=== PATIENT | female | born 1945 | race Caucasian/White ===

== ENCOUNTER 2018-04-11 12:57 | Inpatient (IN) | payer BC, MEDICARE ==
[~2018-04-11] VITALS: Ht 157.5 cm; Wt 73.0 kg
[~2018-04-11 12:57] MED LIST: ACETAMINOPHEN500 MG PO; ASPIR 8181 MG PO; CATAPRES0.1 MG PO; D-20002000 UNIT PO; DALIRESP500 MCG PO; DIGOXIN125 MCG PO; FERROUS SULFAT325 MG PO; FOLIC ACID0.8 MG; FOLIC ACID1 MG PO; IMODIUM A-D2 MG PO; IPRATROPIU0.2 MG/1 M INH; LASIX20 MG PO; LEVALBUTER0.63 MG/3 INH; LEVAQUIN250 MG PO; LIPITOR10 MG; LIPITOR10 MG PO; LISINOPRIL20 MG; MAGNESIUM OXID400 MG PO; METOPROLOL SUCC50 MG; METOPROLOL SUCC50 MG PO; METOPROLOL TAR100 MG PO; NEXIUM40 MG; NEXIUM40 MG PO; NIACIN500 M1; OMEPRAZOLE40 MG PO; POTASSIUM CHLO10 MEQ PO; PREDNISONE5 MG PO; PREPARATION H1 EACH RC; PRINIVIL20 MG PO; PROMETHAZINE HC25 M1 PO; REGLAN5 MG PO; SIMVASTATIN10 MG PO; SPIRONOLACTONE25 MG PO; SUCRALFATE1 GM PO; THIAMINE HCL50 MG PO; ZOFRAN8 MG PO
--- NOTE | 2018-04-11 12:58 | NUR ---
1258 ADENOSINE 6MG 1300 ADENISINE 6MG 1305 ADENOSINE 12MG 1314 SYNC CARDIOVERSION 100J 1314 PATIENT CONVERTED TO SINUS TACH 120'S
[2018-04-11] MEDS ORDERED: ADENOSINE 6MG/2ML 3 ML ONE (13:04)
[2018-04-11] MEDS ORDERED: MIDAZOLAM HCL 2 MG/2 ML VIAL IV ONE (13:10)
[2018-04-11] MEDS ORDERED: MIDAZOLAM HCL 2 MG/2 ML VIAL ONE (13:11)
[2018-04-11 13:15] LABS: BASOPHILS % 0.2 % (0.0-1.0); EOSINOPHILS % 0.1 % (0.0-6.0); HEMATOCRIT 49.7 % (34.2-44.1); HEMOGLOBIN 16.1 g/dL (12.0-16.0); LYMPHOCYTES # (AUTO) 0.3 (1.0-3.2); LYMPHOCYTES % 2.2 % (18.0-39.1); MEAN CORPUSCULAR HEMOGLOBIN 31.6 pg (28-32); MEAN CORPUSCULAR HGB CONC 32.4 g/dL (31-35); MEAN CORPUSCULAR VOLUME 97.5 fL (81-99); MONOCYTES # (AUTO) 0.5 (0.2-0.8); MONOCYTES % 3.9 % (4.4-11.3); NEUTROPHILS # (AUTO) 12.8 (2.1-6.9); PLATELET COUNT 290 x10e3/uL (140-360); RED CELL DISTRIBUTION WIDTH 14.3 % (11.7-14.4)
[2018-04-11] MEDS ORDERED: ASPIRIN 81 MG CHEW TAB PO ONE ×2 (13:15→16:00)
[2018-04-11] MEDS ORDERED: SODIUM CHLORIDE 0.9% 1000ML 1,000 ML ONE (13:16)
[2018-04-11] MEDS ORDERED: AMIODARONE HCL 150MG 100 ML IV STA ×2 (13:25)
[2018-04-11 13:27] LABS: ALBUMIN 3.2 g/dL (3.5-5.0); ANION GAP 19.7 mmol/L (8-16); CALCIUM 9.7 mg/dL (8.4-10.2); CREATININE, SERUM 1.37 mg/dL (0.57-1.11); MAGNESIUM 1.6 MG/DL (1.3-2.1); PHOSPHORUS 4.3 MG/DL (2.3-4.7); POTASSIUM 3.7 mmol/L (3.5-5.1)
[2018-04-11] MEDS ORDERED: AMIODARONE HCL 360MG 200 ML IV SCH ×2 (13:30→18:00)
[2018-04-11 13:33] LABS: CREATINE KINASE MB 3.3 ng/mL (0-5.0)
[2018-04-11] MEDS ORDERED: AMIODARONE HCL 300 MG in DEXTROSE 5% 100ML 100 ML IV ONE (13:45)
--- NOTE | 2018-04-11 14:26 | NUR ---
AT SIDE AND HAS BEEN UPDATED; PT SITTING UP IN BED TALKING WITH NO S/S OF DISTRESS AT THIS TIME
[2018-04-11] MEDS ORDERED: FUROSEMIDE INJ 10 MG/ML 4 ML VIAL IV ONE (16:00)
[2018-04-11] MEDS ORDERED: SODIUM CHLORIDE FLUSH 10 ML SYR INJ PRN (16:00)
[2018-04-11] MEDS ORDERED: ONDANSETRON HCL INJ 2MG/ML 2ML 2 MG/ML VIAL IV PRN (16:00)
[2018-04-11 16:10] LABS: BILIRUBIN,URINE NEGATIVE (NEGATIVE); CLARITY,URINE SL CLOUDY (CLEAR); COLOR,URINE YELLOW (YELLOW); KETONES,URINE NEGATIVE (NEGATIVE); LEUKOCYTE ESTERASE ,URINE TRACE (NEGATIVE); NITRITE,URINE NEGATIVE (NEGATIVE); PROTEIN,URINE DIPSTICK NEGATIVE (NEGATIVE); URINE UROBILINOGEN 0.2 mg/dL (0.2 - 1)
[2018-04-11 16:25] LABS: AMORPHOUS SEDIMENT,URINE MODERATE (FEW); BACTERIA,URINE MANY /HPF; EPITHELIAL CELLS,URINE MODERATE /LPF; RENAL EPITHELIAL CELLS,URINE FEW
--- NOTE | 2018-04-11 17:35 | Diagnostic Imaging Report ---
EXAMINATION: CHEST SINGLE (PORTABLE) INDICATION: Shortness of breath. Tachycardia. COMPARISON: 08/02/2012 FINDINGS: TUBES and LINES: None. LUNGS: Lungs are well inflated. Mild perihilar peribronchial hazy opacity could be due to bronchitis. There is no evidence of pneumonia or pulmonary edema. PLEURA: No pleural effusion or pneumothorax. HEART AND MEDIASTINUM: The cardiomediastinal silhouette is unremarkable. BONES AND SOFT TISSUES: No acute osseous lesion. Soft tissues are unremarkable. UPPER ABDOMEN: No free air under the diaphragm. IMPRESSION: Mild perihilar peribronchial hazy opacity could be due to bronchitis. Signed by: Dr. Aneudy Talamantes M.D. on 04/11/2018 5:31 PM
[2018-04-11] MEDS: ERTAPENEM 1GM/NS 100ML 100 ML IV SCH (19:30)
[2018-04-11 22:37] LABS: CREATINE KINASE MB 3.5 ng/mL (0-5.0)
[2018-04-11 23:42] VITALS: BP 149/70
[2018-04-12] VITALS (7 sets, daily range): BP systolic 121–164; BP diastolic 63–74
[2018-04-12] MEDS: ALBUTEROL/IPRATROPIUM 3 ML NEB NEB SCH ×7 (00:05→23:00)
--- NOTE | 2018-04-12 05:45 | Diagnostic Imaging Report ---
EXAM: XR CHEST 1 VIEW DATE: 04/12/2018 7:00 AM INDICATION: Shortness of breath COMPARISON: 04/11/2018, no report available FINDINGS: Lines and Tubes: None Heart and Mediastinum: Heart is mildly enlarged. Aortic vascular calcifications present. Tortuous aorta. Lungs and Pleura: Minimal opacities lung bases suggesting atelectasis and probable biapical scarring, stable. Bones and Soft Tissues: No acute findings. IMPRESSION: 1. No significant interval change. Signed by: Dr. Saul Oviedo MD on 04/12/2018 5:42 AM
--- NOTE | 2018-04-12 07:00 | NUR ---
Walking rounds done and report received. Patient is resting in bed without any complaints voiced. Tele# [phone], [id number] per telephone directory deliverer. POC discussed. Patient instructed to call for assistance as needed and verbalized understanding. Bed in lowest position, locked and call conde within reach.
[2018-04-12 07:45] LABS: BASOPHILS % 0.2 % (0.0-1.0); EOSINOPHILS % 0.3 % (0.0-6.0); HEMATOCRIT 46.8 % (34.2-44.1); HEMOGLOBIN 14.7 g/dL (12.0-16.0); LYMPHOCYTES # (AUTO) 0.7 (1.0-3.2); LYMPHOCYTES % 5.4 % (18.0-39.1); MEAN CORPUSCULAR HEMOGLOBIN 31.5 pg (28-32); MEAN CORPUSCULAR HGB CONC 31.4 g/dL (31-35); MEAN CORPUSCULAR VOLUME 100.2 fL (81-99); MONOCYTES % 7.7 % (4.4-11.3); NEUTROPHILS # (AUTO) 10.9 (2.1-6.9); NEUTROPHILS % 84.6 % (38.7-80.0); PLATELET COUNT 250 x10e3/uL (140-360); RED BLOOD COUNT 4.67 x10e6/uL (3.6-5.1); RED CELL DISTRIBUTION WIDTH 14.3 % (11.7-14.4)
[2018-04-12 08:00] LABS: CREATINE KINASE MB 4.3 ng/mL (0-5.0)
[2018-04-12 08:04] LABS: ALBUMIN 2.7 g/dL (3.5-5.0); ALBUMIN/GLOBULIN RATIO 1.1 (0.8-2.0); CALCIUM 8.4 mg/dL (8.4-10.2); CREATININE, SERUM 0.94 mg/dL (0.57-1.11)
[2018-04-12] MEDS ORDERED: HYDRALAZINE HCL 20 MG/ML VIAL IV PRN (10:00)
[2018-04-12] MEDS ORDERED: ENOXAPARIN SODIUM INJ 100 MG/ML SYR SC SCH (10:00)
--- NOTE | 2018-04-12 10:00 | NUR ---
GISEL Aggarwal reviewed EKG. Orders for as per EMAR.
[2018-04-12 10:03] LABS: MAGNESIUM 1.4 MG/DL (1.3-2.1)
[2018-04-12] MEDS: POTASSIUM CHLORIDE 20 MEQ TAB CR PO SCH (10:15)
[2018-04-12] MEDS: FUROSEMIDE INJ 10 MG/ML 4 ML VIAL IV SCH (10:15)
[2018-04-12] MEDS: METOPROLOL TARTRATE 25 MG TAB PO SCH ×2 (10:15→16:32)
[2018-04-12 10:29] LABS: THYROID STIMULATING HORMONE 1.387 uIU/mL (0.350-4.940)
[2018-04-12] MEDS: ENOXAPARIN INJ 80 MG/0.8 ML SYR SC SCH ×2 (10:30→20:51)
[2018-04-12] MEDS ORDERED: ALBUTEROL/IPRATROPIUM 3 ML NEB NEB PRN (10:30)
[2018-04-12] MEDS ORDERED: HYDROCODONE/APAP 5MG-325MG TAB PO PRN (10:30)
[2018-04-12] MEDS ORDERED: MORPHINE SULFATE 5 MG/ML VIAL IV PRN (10:45)
--- NOTE | 2018-04-12 11:06 | Consultation ---
DATE OF CONSULTATION: April 11, 2018 CARDIOLOGY CONSULTATION REASON FOR CONSULTATION: SVT. REFERRING PHYSICIAN: Dr. Harrison HPI: This is a frail, 72-year-old female with harden face that presented with SVT. She was at Dr. Angulo's office for routine checkup. EKG was done. Heart rate was in the 180s, SVT, and she was sent to the emergency room for further evaluation. She stated that within the last 1 week she started having shortness of breath, unable to carry out activities of daily living, difficulty with walking around. She has a history of chronic COPD. She smokes daily and drinks daily. She also complained of bilateral lower extremity edema and redness that have been going on for 3 weeks now. She denied any chest pain, any dizziness, any diaphoresis, any headache, nausea or vomiting. In the emergency room, she was given adenosine, amiodarone and Versed, and she converted back to normal sinus rhythm. She got a chest x-ray done that showed mild perihilar and peribronchial opacity due to bronchitis. PAST MEDICAL HISTORY: Chronic COPD, chronic alcohol abuse, chronic smoker, hypertension, chronic liver disease, bilateral carotid stenosis, hepatic encephalopathy, pneumonia, sepsis in the past. PAST SURGICAL HISTORY: Bilateral carotid endarterectomy, appendectomy, breast cyst removal. FAMILY HISTORY: Positive for CAD. SOCIAL HISTORY: She lives at home with her . She drinks alcohol daily. She uses e-cigarettes. MEDICATIONS: See med list. ALLERGIES: SHE IS NOT ALLERGIC TO ANY MEDICATION. REVIEW OF SYSTEMS: Negative except those mentioned above. She is positive for SVT, shortness of breath, and bilateral lower extremity redness and edema. PHYSICAL EXAMINATION VITAL SIGNS: Temperature 99, heart rate 113, blood pressure 144/67, respirations 17, oxygen saturation 95% on 3 liters nasal cannula. GENERAL: She is awake and alert but frail. HEENT: Mucous membranes are moist. NECK: Supple. LUNGS: Bilateral with decreased breath sounds. CARDIOVASCULAR: Irregularly irregular. ABDOMEN: Soft. NEUROLOGIC: Intact. She is able to move all extremities. EXTREMITIES: Bilateral lower extremities with 2 to 3+ edema, redness and warm to touch. LABS: Sodium 142, potassium 3.0, chloride 92, CO2 37, BUN 30, creatinine 0.94. Glucose 75. White blood cells 12.8, hemoglobin 14.7, hematocrit 46.8, platelets 250. IMPRESSION 1. Supraventricular tachycardia. 2. Atrial fibrillation with rapid ventricular response. 3. Bilateral lower extremity cellulitis. 4. Hypertension. 5. Elevated white blood cell count. 6. History of alcohol and tobacco abuse. 7. Chronic obstructive pulmonary disease on steroids. 8. Possible history of congestive heart failure. 9. History of bilateral carotid stenosis. 10. Hypokalemia. ASSESSMENT AND PLAN 1. She received adenosine in the emergency room. She converted back to normal sinus rhythm, but she is in atrial fibrillation now. 2. We will go ahead and get an echocardiogram to assess the LV and the valve function. 3. Will check TSH, magnesium, BNP. 4. Will get bilateral lower extremity arterial Doppler. 5. Potassium is low and has been replaced. 6. We will put her on low-dose beta lalita and diuretic. 7. Further cardiac workup pending clinical course. Thank you for this consultation. DICTATED BY: Hayed Loaiza NP Job#: [id number]
[2018-04-12] MEDS: VANCOMYCIN 1GM/NS 250 ML 250 ML IV SCH ×2 (11:30→21:58)
--- NOTE | 2018-04-12 13:29 | History and Physical ---
CHIEF COMPLAINT: Heart palpitations. HISTORY OF PRESENT ILLNESS: This is a 72-year-old female with past medical history of COPD, CAD, hypertension, hyperlipidemia, chronic alcohol abuse, presented to Dr. Angulo's office, cardiology, with complaints of palpitations, found to have SVT and was sent to the ER for further evaluation. Patient was given adenosine 6 mg then 6 mg then 12 mg before the patient's SVT resolved. Cardiology was consulted. Patient also had Significant amount of lower extremity cellulitis as well that she did not mention to us as well. She also has a significant amount of edema as well. She denies any chest pain, nausea, vomiting, any other complaints. Reports her last alcoholic drinks was a week ago. REVIEW OF SYSTEMS: Pertinent positives: Palpitations, lower extremity edema, lower extremity cellulitis. Pertinent negatives: Denies any chest pain. History of hematuria, frequency, urgency, lightheadedness, dizziness, abdominal pain, headache, shortness of breath, cough, congestion, fever, or any other complaints. The rest of 14-point review of systems have been reviewed with the patient and are negative. ALLERGIES: NO KNOWN DRUG ALLERGIES. HOME MEDICATIONS 1. Aspirin 81 mg daily. 2. Iron tablets 325 mg a day. 3. Folic acid 1 mg a day. 4. Omeprazole 40 mg daily. 5. Lasix 20 mg p.o. b.i.d. 6. Xopenex 0.63 mg daily or as needed. 7. Magnesium oxide. 8. Promethazine. PAST MEDICAL HISTORY: COPD, chronic alcohol abuse, CAD, hypertension, medical noncompliance. SURGICAL HISTORY: Reported none. FAMILY HISTORY: Hypertension, diabetes. SOCIAL HISTORY: No drugs. She does drink, she says only on the weekends. Last drink 1 week ago. No smoking. PHYSICAL EXAMINATION VITAL SIGNS: Temperature is 99.1, pulse 113, respiratory rate 17, blood pressure 144/67, pulse oximetry 95% on 3 liters nasal cannula. GENERAL: Not in acute distress. Alert and oriented x3, cooperative on examination. HEENT: Head is normocephalic and atraumatic. Eyes: Pupils are equal, round, reactive to light bilaterally. Extraocular movements are intact bilaterally. Throat with no evidence of any erythema or exudates in the posterior pharynx. Has poor dentition. NECK: Supple. Good range of motion. PULMONARY: Clear to auscultation bilaterally. No wheezing. No rales. No rhonchi. No crackles appreciated. CARDIOVASCULAR: Positive S1, S2. No murmurs, rubs, or gallops appreciated. ABDOMEN: Soft, nondistended, nontender to palpation. Bowel sounds are present. MUSCULOSKELETAL: Strength is 5/5 throughout. No evidence of any musculoskeletal deficits on examination. No weakness appreciated. NEUROLOGIC: Cranial nerves II through XII are grossly intact. No evidence of any neurological deficits on exam. SKIN: Intact. Warm to touch. Good cap refill. PSYCHIATRIC: Normal affect and mood. EXTREMITIES: No edema. Good range of motion throughout. LAB FINDINGS: Show white count is 12.8, hemoglobin is 14.9, hematocrit is 47, platelets of 250. Chemistry: sodium 142, potassium is 3, chloride 92, bicarb 37, anion gap 16, BUN is 30, creatinine is 0.94, glucose 75, lactic acid was normal at 5.9, calcium 8.4. LFTs were normal. Troponin was slightly elevated. BNP 258. Albumin is 2.7, total bilirubin 1.3. Urinalysis concerning for possible UTI. Blood cultures are pending. IMAGING STUDIES: Chest x-ray: no significant interval change. IMPRESSIONS 1. Supraventricular tachycardia, now in normal sinus rhythm. 2. Lower extremity edema. 3. Chronic alcohol abuse. 4. Chronic obstructive pulmonary disease, not on exacerbation currently. 5. Hypokalemia. 6. Metabolic alkalosis secondary to respiratory compensation from chronic obstructive pulmonary disease. PLAN: At this time, cardiology has been consulted for the SVT, currently her heart rate is better controlled. She is on certain cardioprotective meds. I started the patient on IV Invanz as well as IV vancomycin for her lower extremity cellulitis. I will also get an arterial Doppler and a venous Doppler of the lower extremities due to the edema. In relation to her chronic alcohol abuse, she is on Librium p.r.n. I will restart all of her COPD medications. Replace potassium. Will get PT and OT as well. Put her on Lovenox for DVT prophylaxis. Otherwise, will continue with same plan of care. Job#: [id number] CHRIS
--- NOTE | 2018-04-12 13:44 | NUR ---
WOUND CARE CONSULTATION- INITIAL EVALUATION -Pt admitted to ER for SVT, BLE redness, weeping, and open ulcers. - Dr Sung on Case for IV ABX and management of BLE Infection. LABS: WBC12.88 HGB14.7 HCT46.8 NEUT%84.6 GLU75 ALB27 WC Consulted for BLE Ulcers. Chart Reviewed. - BS 18 - Alternating Pressure Air Mattress in Place - Moderate PUP active. - No prior Wound CX noted in chart. Patient Visit- - Patient in bed calm and in good spirits. AAOX4 - Verbalizes she has had redness, swelling, tenderness and open ulcers to BLE for past 2 weeks. - Previously using Betadine and an oil based skin protectant ( Unable to recall name). - BLE Weeping onto bed. Large amount of drainage over pillow. - Deep rubor noted. tender to touch with wrinkled appearance over dorsal of feet indicating improving edema. - +1 Edema at ankles. Redness tapers off at below the knees and increases in redness distally. - Wound Culture Performed During visit to Posterior LLE. IMPRESSION. BLE- Cellulitis with Open Ulcerations. RECOMMENDATION: 1. Bilateral Lower Leg Redness with Ulcerations: - Wash with Hibiclens Soap +Sterile Water and Pat Dry Thoroughly with 4x4 Gauze Daily. - Apply Single Layer Xeroform Gauze over open areas and Cover with ABD pad and Wrap with Light Kerlix and Light Justo Wraps Daily. 2. Offload Heels with pillows while in bed. 3. Turn and Reposition every 2 Hours 4. Continue use of Alternating Pressure Air Mattress. 5. Wound Culture LLE. Thank you for consulting with Wound Care. Addendum: 04/12/18 at 1359 by Kevyn Watson RN Amended: Links added.
--- NOTE | 2018-04-12 15:05 | NUR ---
Visit made by the Spiritual Care Department Pastoral Visitor, Yen Oquendo. PV provided pastoral presence, prayer, hospitality, and supportive listening. Pastoral Visitor informed pt/family of the scope of [employer] and availability. SANDEEP CLARK Sock Examiner Spiritual Care Department O: [phone] Pager: [phone] ([phone] number calling from)
[2018-04-12] MEDS: ENOXAPARIN SOD INJ 40 MG/0.4 ML SYR SC SCH (16:40)
--- NOTE | 2018-04-12 16:45 | Consultation ---
DATE OF CONSULTATION: April 12, 2018 REASON FOR CONSULTATION: Cellulitis of the leg. This patient who is a 72-year-old white female who saw a physician in because she was having some shortness of breath. It was noted that was tachycardiac. She went to see Dr. Angulo. Dr. Angulo did an EKG. She had a heart rate of 180 with SVT. She was taken to the emergency room to be admitted. It was also noted that she had some swelling in the bilateral lower extremities, as well as redness and swelling of the right leg. The patient has history of COPD, history of alcoholism, chronic smoker, still active, hypertension, liver disease, atherosclerotic disease, bilateral carotid stenosis, hepatic encephalopathy for pneumonia, sepsis before, bilateral lower extremity edema comes in with shortness of breath and fast heart rate and arrhythmia. PAST MEDICAL HISTORY: As above. PAST SURGICAL HISTORY: Bilateral carotid endarterectomy, appendectomy. SOCIAL HISTORY: She continues to smoke. She continues to drink. REVIEW OF SYSTEMS GENERAL: Currently, feeling better. HEENT: Negative. PULMONARY: Negative. She said her shortness of breath is better. HEART: Her heart also seems to be better. She said it is not very fast. The palpitations have resolved. EXTREMITIES: The patient has bilateral lower extremity edema. Review of systems otherwise noncontributory. MEDICATIONS: At home, she is on aspirin, iron, Lasix, magnesium. PHYSICAL EXAMINATION GENERAL: She is currently alert and oriented. Does not seem to be in acute distress. VITALS: Temperature 99.1, heart rate 100, respirations 17, blood pressure 144/67. HEENT: Normocephalic. Nonicteric. NECK: Supple. No JVD. No thyromegaly. CHEST: Clear bilateral. HEART: S1 and S2. No S3, S4 or murmur. ABDOMEN: Soft. Bowel sounds present. No tenderness. No hepatosplenomegaly. EXTREMITIES: On the bilaterally lower extremities, there is edema bilateral. There is erythema noted involving her right leg from the ankle all the way to the knee. LABS: White count is 12.8, hemoglobin 14.9. Her blood cultures no growth in 24 hours. Her white count is 13.9 today. Sodium 142, potassium 3.2, creatinine 0.9. She is currently on vancomycin, Lovenox and Invanz. IMPRESSION 1. Cellulitis of bilateral lower extremities, but a lot worse on the right leg probably due to bilateral lower extremity lymphedema in a patient with alcoholism, atherosclerotic disease and peripheral vascular disease. Will continue the same. Reassess in the morning and see how she is going to do. 2. History of liver cirrhosis. 3. History of smoking. 4. History of alcoholism. 5. History of arrhythmia. Will follow. Job#: [id number] RI
[2018-04-12] MEDS ORDERED: POTASSIUM CHLORIDE 20 MEQ TAB CR PO ONE (17:00)
--- NOTE | 2018-04-12 17:30 | NUR ---
Patient is resting quielty in no apparent distress. Call conde within reach and bed alarm on for safety.
[2018-04-12] MEDS: ERTAPENEM 1GM/NS 100ML 100 ML IV SCH (19:58)
[2018-04-12] MEDS: CHLORDIAZEPOXIDE HCL 25 MG CAP PO PRN (20:51)
[2018-04-13] VITALS (11 sets, daily range): BP systolic 94–137; BP diastolic 49–92
[2018-04-13] MEDS: ALBUTEROL/IPRATROPIUM 3 ML NEB NEB SCH (03:30)
[2018-04-13 05:39] LABS: BASOPHILS # (AUTO) 0.1 (0.0-0.1); BASOPHILS % 0.6 % (0.0-1.0); EOSINOPHILS # (AUTO) 0.1 (0.0-0.4); EOSINOPHILS % 0.7 % (0.0-6.0); HEMATOCRIT 48.3 % (34.2-44.1); LYMPHOCYTES # (AUTO) 0.9 (1.0-3.2); LYMPHOCYTES % 7.8 % (18.0-39.1); MEAN CORPUSCULAR HEMOGLOBIN 31.4 pg (28-32); MEAN CORPUSCULAR HGB CONC 31.1 g/dL (31-35); MONOCYTES # (AUTO) 1.1 (0.2-0.8); MONOCYTES % 9.3 % (4.4-11.3); NEUTROPHILS # (AUTO) 9.3 (2.1-6.9); PLATELET COUNT 241 x10e3/uL (140-360); RED BLOOD COUNT 4.78 x10e6/uL (3.6-5.1); RED CELL DISTRIBUTION WIDTH 14.3 % (11.7-14.4)
[2018-04-13 06:07] LABS: ANION GAP 17.9 mmol/L (8-16); CALCIUM 8.7 mg/dL (8.4-10.2); CREATININE, SERUM 0.98 mg/dL (0.57-1.11); POTASSIUM 3.9 mmol/L (3.5-5.1)
[2018-04-13] MEDS: METOPROLOL TARTRATE INJ 1 MG/ML VIAL IV PRN (08:16)
[2018-04-13] MEDS ORDERED: LEVALBUTEROL HCL SOLN NEBU 0.63 MG/3 ML NEB INH PRN (08:30)
[2018-04-13] MEDS: POTASSIUM CHLORIDE 20 MEQ TAB CR PO SCH (10:00)
[2018-04-13] MEDS: ASPIRIN 81 MG CHEW TAB PO SCH (10:00)
[2018-04-13] MEDS: FERROUS SULFATE 325 MG TAB PO SCH (10:00)
[2018-04-13] MEDS: FOLIC ACID 1 MG TAB PO SCH (10:00)
[2018-04-13] MEDS: FUROSEMIDE INJ 10 MG/ML 4 ML VIAL IV SCH (10:00)
[2018-04-13] MEDS: METOPROLOL TARTRATE 25 MG TAB PO SCH ×2 (10:01→18:17)
[2018-04-13] MEDS: ENOXAPARIN INJ 80 MG/0.8 ML SYR SC SCH (10:01)
[2018-04-13] MEDS: PANTOPRAZOLE SOD 40 MG TABEC PO SCH (10:01)
[2018-04-13] MEDS: VANCOMYCIN 1GM/NS 250 ML 250 ML IV SCH ×2 (10:01→22:19)
--- NOTE | 2018-04-13 10:30 | NUR ---
Attempted PT treatment. Patient about to be transferred to [facility]. Due to transfer to higher level of care, will need new PT Evaluation Orders to resume therapy. Addendum: 04/13/18 at 1030 by CATALINO SERRANO PT Amended: Links added.
[2018-04-13] MEDS: LEVALBUTEROL HCL SOLN NEBU 0.63 MG/3 ML NEB INH SCH ×4 (11:00→23:25)
--- NOTE | 2018-04-13 11:22 | Progress Note ---
DATE: April 13, 2018 MEDICINE PROGRESS NOTE SUBJECTIVE: The patient was alert and oriented x3, but a little bit lethargic. She was given a dose of Librium last night. I am not sure if she was actually anxious or agitated, but was given a dose. Her heart rate will fluctuate, likely due to some DuoNeb. We will go ahead and consult with pulmonary to come see her as she gets very hypoxic. Currently on 8 liters nasal cannula. OBJECTIVE LABS: White count 11.5, hemoglobin 15, hematocrit 48, platelets 241. Chemistries: Sodium 141, potassium 3.9, chloride 94, bicarb 33, anion gap 17, BUN 27, creatinine 0.98, glucose 80, calcium 8.7, magnesium 1.4. TSH is 1.3. Urinalysis was concerning for UTI. Blood cultures are no growth to date. Wound culture is no growth to date. IMAGING STUDIES: Echo shows EF of 40% to 45%. Lower extremity venous Doppler shows no evidence of DVT. Arterial Doppler shows suggestion of some right lower extremity PAD disease as well as left lower extremity PAD disease. PHYSICAL EXAMINATION GENERAL: Not in acute distress. Alert and oriented x3, cooperative on exam. HEENT: Head is normocephalic and atraumatic. Eyes: Pupils are equal, round, reactive to light bilaterally. Extraocular movements are intact bilaterally. NECK: Supple. Good range of motion. Throat with no evidence of any erythema or exudates in the posterior pharynx. Has poor dentition. PULMONARY: Clear to auscultation bilaterally. No wheezing. No rales. No rhonchi. No crackles appreciated. CARDIOVASCULAR: Positive S1, S2. No murmurs, rubs, or gallops appreciated. ABDOMEN: Soft, nondistended, nontender to palpation. Bowel sounds are present. MUSCULOSKELETAL: Strength is 5/5 throughout. No evidence of any musculoskeletal deficits on examination. No weakness appreciated. NEUROLOGIC: Cranial nerves II through XII are grossly intact. No evidence of any neurological deficits on exam. SKIN: Intact. Warm to touch. Good cap refill. PSYCHIATRIC: Normal affect and mood. EXTREMITIES: No edema. Good range of motion throughout. IMPRESSIONS 1. Supraventricular tachycardia, now in normal sinus rhythm. Occasionally will go tachycardic. 2. Lower extremity edema. 3. History of congestive heart failure with diastolic dysfunction with ejection fraction of 40% to 45%. 4. Chronic alcohol abuse. 5. Chronic obstructive pulmonary disease, currently hypoxic on 8 liters of oxygen. 6. Hypokalemia, replaced. 7. Metabolic alkalosis secondary to respiratory compensation from chronic obstructive pulmonary disease. PLAN: At this time, cardiology is going to transfer the patient to [facility], which is probably a good choice with continuous monitoring. In relation to her lower extremity edema, lower extremity venous Doppler was negative for DVT but showed significant PAD disease on arterial Doppler. She will likely get an angiogram of the lower extremities. She is on Librium for in the event she gets alcohol withdrawal. In relation to her hypoxia from her COPD, I am going to go ahead and consult with pulmonary. I am going to go ahead and get a.m. labs as well. She is on Lovenox for DVT prophylaxis. Continue with PT and OT. 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 I will go ahead and put a case management consult for SNF eval. The patient will likely to be here for several more days. She still needs a significant amount of workup needed. Job#: [id number]
[2018-04-13] MEDS ORDERED: HYDROCODONE/APAP 5MG-325MG TAB PO PRN (12:15)
--- NOTE | 2018-04-13 13:42 | NUR ---
Dr. Ramos spoke with Dr. Morfin about consult
--- NOTE | 2018-04-13 14:19 | NUR ---
WENT TO SPEAK WITH PATIENT ABOUT [facility] FOR SNF AND THE PROCESS. SIGNED CHOICE FOR [facility]. FILED IN CHART WILL FAX CLINICALS TO [phone]
--- NOTE | 2018-04-13 14:23 | Consultation ---
DATE OF CONSULTATION: April 13, 2018 ATTENDING PHYSICIAN: Dr. Harrison. OUTPATIENT HAND COREMAKER: Dr. Theo Morfin. Ms. Perkins is a 72-year-old white woman with multiple medical problems including COPD with chronic hypoxemic respiratory failure and cirrhosis, who was sent to the emergency department from cardiology secondary to being found in SVT at a routine checkup. There was attempt at cardioversion according to the spouse. Ultimately she improved with medication. She has had progressive hypoxemia. The also states that for the last month or more she has been having increased swelling of the lower extremities including weeping and blisters that would leak clear fluid. There have been no fevers or chills. She has had a lot of redness down there. She has a chronic cough of yellow to brown sputum. She does use oxygen at home on an as-needed basis. She is not using it continuously. She does not use noninvasive ventilation. Currently she is on a Ventimask, saturations of 94%, with an FiO2 of 40%. She denies chest pain, palpitations. Again, she admits to swelling. She has no change in her cough. PAST MEDICAL HISTORY: COPD, cirrhosis, carotid stenosis, hepatic encephalopathy, sepsis, hypertension, chronic alcohol use, chronic tobacco use. PAST SURGICAL HISTORY: She has had carotid endarterectomy bilaterally. She has had appendectomy. SOCIAL HISTORY: She lives with her . She has 2 drinks of alcohol, whiskey, daily. She used to smoke 2 packs of cigarettes a day for 40 years. Now she is using E-cigarettes. DRUG ALLERGIES: NONE. CURRENT MEDICATIONS: Reviewed. EXAMINATION VITAL SIGNS: Heart rate is currently around 100, respiratory rate is 18 to 22, saturations 96% with a Ventimask at 40%. Last blood pressure was 136/64. GENERAL APPEARANCE: This is a chronically ill-appearing white woman. She is not in any respiratory distress, wearing a Ventimask. HEENT: Pupils are reactive. Sclerae anicteric. Her facial features are mildly cushingoid. NECK: Short, thick but supple. CHEST: Has just some coarse diminished breath sounds. Some mild wheezes. HEART: Has a regular rate and rhythm without murmurs, rubs or gallops. ABDOMEN: Soft, nontender. There is no rebound or guarding. There is no obvious fluid wave. EXTREMITIES: Edematous. They are wrapped with Justo bandage. They are erythematous. They are edematous 2 to 3+. I did not take down the dressings to see blister formation. NEUROLOGICALLY: She is awake, alert, nonfocal. Speech is fluent. LAB DATA: Most earliest labs on the are notable for total serum carbon dioxide of 37, BUN and creatinine are 30 and 0.9. Today it is 33 with a BUN and creatinine of 27 and 0.9. Her AST is mildly elevated at 39. Her B natriuretic peptide was 258. Her albumin is low at 2.7. Urinalysis shows significant sediment bacteria, casts, white cells, leukocyte esterase, epithelial cells. White blood cell count at admission was 13. It is 11 today. When she came in, her hemoglobin was 16 with a hematocrit of 49. It is now 15 and 48. Platelets are 240,000 with a left shift. Echocardiogram shows a 40% to 45% ejection fraction. Chest x-ray by report, I am unable to bring up, shows some chronic changes and cardiomegaly. No acute infiltrates or effusions. Blood cultures x2 show no growth at 24 hours. Wound culture of the left leg shows few WBCs, gram-positive rods and gram-negative rods. ASSESSMENTS 1. [id number]-[id number] hypercapnic hypoxemic respiratory failure. 2. Chronic obstructive pulmonary disease, severe. 3. Congestive heart failure, systolic, with some degree of [id number], worsened by number 4. 4. Supraventricular tachycardia. 5. Edema of the lower extremities with bullous changes as well as cellulitis. 6. Cirrhosis. 7. Hypoalbuminemia/hypoproteinemia. 8. Nicotine dependence. She has a history of tobacco use, 80 pack-years. Now is getting nicotine through electronic device. 9. Alcohol abuse. 10. Obstructive sleep apnea suspected. RECOMMENDATIONS AND PLAN: She will be continued on oxygen, nebulized bronchodilators. Given the SVT, we will add LAMA and LABA with Advair and Spiriva here. Continue supportive care with oxygen. ABG is pending. Given the tachyarrhythmia, will also get a CT angiogram since CT angiogram of the legs has been ordered. If she does sheet turner to have AFib, she is going to need chronic oral anticoagulation, but she does have a history of fall and hip fracture. With regard to her COPD, I do not think she has flared currently. Will defer on steroids. The patient tells me as recently as 2 weeks ago she saw Dr. Theo Morfin, her chemist inorganic. I have spoken with him. He will resume her care tomorrow. Job#: [id number] CHRIS
[2018-04-13 14:28] LABS: ABG HCO3 36 mmol/L (23-28); ABG PCO2 57 mmHg (41-51); ABG PO2 77 mmHg (80-105)
[2018-04-13] MEDS: ENOXAPARIN SOD INJ 40 MG/0.4 ML SYR SC SCH (18:17)
--- NOTE | 2018-04-13 19:23 | Diagnostic Imaging Report ---
EXAM: CT Chest pulmonary embolism protocol and CT, abdomen and pelvis runoff WITH contrast 04/13/2018 12:00 PM INDICATION: Shortness of breath. Bilateral lower leg edema. SVT. COMPARISON: None TECHNIQUE: Chest, abdomen and pelvis with runoff was scanned utilizing a multidetector helical scanner after administration of IV contrast. Coronal and sagittal reformations were obtained. Chest pulmonary intervals in protocol was performed. CTA abdomen and pelvis, lower extremities was performed. 3-D reformatted images were obtained of the abdominal, pelvic and bilateral lower extremity arterial system. Protocol was performed. IV CONTRAST: 100 mL of Isovue-370 RADIATION DOSE: Total DLP: 1195.06 mGy*cm Estimated effective dose: (DLP x 0.014 x size factor) mSv All CT scans are performed using radiation dose reduction techniques. Technical factors are evaluated and adjusted to ensure appropriate moderation of exposure. Automated dose management technology is applied to adjust the radiation dose to minimize exposure while achieving a diagnostic-quality image. COMPLICATIONS: None FINDINGS: LINES/ TUBES: None. LUNGS AND AIRWAYS: Chronic appearing changes in the lungs with regions of scarring/atelectasis most pronounced in the lower lobe and in the left lung. Airways are normal. PLEURA: Small right pleural effusion with associated atelectasis. Calcified pleural plaques most pronounced in the left posterior chest. HEART AND MEDIASTINUM: No pulmonary embolism is seen. The thyroid gland is normal. No mediastinal, hilar or axillary lymphadenopathy. Cardiomegaly with likely sequela of pulmonary hypertension. The pulmonary artery measures 3.4 cm in diameter.. There is no pericardial effusion. There is scattered atherosclerotic calcification in the coronary arteries, aorta and branch vessels. HEPATOBILIARY: No focal hepatic lesions. No biliary ductal dilation. GALLBLADDER: No radio-opaque stones or sludge. No wall thickening. SPLEEN: No splenomegaly. PANCREAS: No focal masses or ductal dilatation. ADRENALS: No adrenal nodules KIDNEYS/URETERS: Chronic appearing scarring in the kidneys. No hydronephrosis. No cystic or solid mass lesions. No stones. GI TRACT: No abnormal distention, wall thickening, or evidence of bowel obstruction. Moderate size hiatal hernia. Scattered diverticulosis without evidence of diverticulitis. PELVIC ORGANS/BLADDER: Unremarkable. LYMPH NODES: No lymphadenopathy. VESSELS: Mild aneurysmal dilatation of the infrarenal abdominal aorta with a maximal diameter of 2.4 cm. PERITONEUM / RETROPERITONEUM: No free air or fluid. BONES: Postsurgical change in the left hip/left femur. SOFT TISSUES: Mild diffuse anasarca. Pelvis vessels: Bilateral common, external, and internal iliac arteries are patent. Right lower extremity: Right common femoral, profundus femoral, superficial femoral, and popliteal arteries are patent. There is a patent trifurcation with both anterior and posterior tibial arteries supply the foot. The blood supply to the foot is diminutive. Left lower extremity: Right common femoral, profundus femoral, superficial femoral, and popliteal arteries are patent. There is a patent trifurcation with both anterior and posterior tibial arteries supply the foot. The blood supply to the foot is diminutive. IMPRESSION: Mild aneurysmal dilatation of the infrarenal abdominal aorta with a maximal diameter of 2.4 cm. Regions of scattered atherosclerotic calcification in the coronary arteries, aorta and branch vessels. The blood supply to the right and left foot is diminutive. No pulmonary embolism is seen. Small right pleural effusion with associated atelectasis. Calcified pleural plaques most pronounced in the left posterior chest. Cardiomegaly with likely sequela of pulmonary hypertension. Signed by: Dr. Aneudy Talamantes M.D. on 04/13/2018 7:20 PM
[2018-04-13] MEDS ORDERED: IOPAMIDOL 370 MG/ML 200 ML INFUS..BTL INJ ONE (19:28)
[2018-04-13] MEDS ORDERED: SODIUM CHLORIDE 0.9% 100 ML 100 ML ONE (19:28)
[2018-04-13] MEDS: SALMETEROL/FLUTICASONE 250/50 INH SCH (19:40)
--- NOTE | 2018-04-13 20:02 | Diagnostic Imaging Report ---
EXAMINATION: CHEST SINGLE (PORTABLE) INDICATION: Shortness of breath ^per Dr. Ramos ^[id number] ^194 COMPARISON: None FINDINGS: TUBES and LINES: None. LUNGS: Chronic appearing changes in the lungs. There is no evidence of pneumonia or pulmonary edema. PLEURA: Small right pleural effusion. No pneumothorax. HEART AND MEDIASTINUM: Cardiomegaly with likely pulmonary hypertension BONES AND SOFT TISSUES: No acute osseous lesion. Soft tissues are unremarkable. UPPER ABDOMEN: No free air under the diaphragm. IMPRESSION: Small right pleural effusion with adjacent atelectasis but are seen on recent CT scan. Cardiomegaly with likely sequela of pulmonary hypertension. Signed by: Dr. Aneudy Talamantes M.D. on 04/13/2018 7:58 PM
[2018-04-13] MEDS: ERTAPENEM 1GM/NS 100ML 100 ML IV SCH (20:19)
--- NOTE | 2018-04-13 20:59 | NUR ---
called and spoke with dr Harrison, obtained order for Vanco through to be done and per MD do not give vanco if the vanco result is greater than 20.
--- NOTE | 2018-04-13 21:28 | NUR ---
blood sample sent to lab for bryson trough
--- NOTE | 2018-04-13 22:19 | NUR ---
Vanco trough result is 25.9; Vancomycin not given as ordered.
[2018-04-13] MEDS: CHLORDIAZEPOXIDE HCL 25 MG CAP PO PRN (22:30)
[2018-04-14] VITALS (7 sets, daily range): BP systolic 97–127; BP diastolic 56–96
--- NOTE | 2018-04-14 01:26 | NUR ---
patient is awake, forgetful and confused. keeps taking off pulse ox, and got agitated when nurse tried to put pulse ox back.
[2018-04-14] MEDS: LEVALBUTEROL HCL SOLN NEBU 0.63 MG/3 ML NEB INH SCH ×6 (03:12→23:00)
[2018-04-14] MEDS: SALMETEROL/FLUTICASONE 250/50 INH SCH ×2 (08:05→19:30)
[2018-04-14] MEDS: TIOTROPIUM 18 MCG INH POWDER INH SCH (08:05)
[2018-04-14] MEDS: ASPIRIN 81 MG CHEW TAB PO SCH (08:27)
[2018-04-14] MEDS: FERROUS SULFATE 325 MG TAB PO SCH (08:27)
[2018-04-14] MEDS: CHLORDIAZEPOXIDE HCL 25 MG CAP PO PRN (08:27)
[2018-04-14] MEDS: POTASSIUM CHLORIDE 20 MEQ TAB CR PO SCH (08:27)
[2018-04-14] MEDS: METOPROLOL TARTRATE 25 MG TAB PO SCH ×2 (08:27→16:31)
[2018-04-14] MEDS: PANTOPRAZOLE SOD 40 MG TABEC PO SCH (08:27)
[2018-04-14] MEDS: FOLIC ACID 1 MG TAB PO SCH (08:27)
[2018-04-14] MEDS: FUROSEMIDE INJ 10 MG/ML 4 ML VIAL IV SCH (08:27)
--- NOTE | 2018-04-14 08:28 | NUR ---
PT AGITATED THIS AM ATTEMPTING TO GET OUT OF BED, AND SCOOTING HERSELF ALL THE WAY TO THE BOTTOM OF HER BED, DURING THIS PT SATS DROP TO 79-83% ON VMASK THIS RN ATTEMPTED TO PUT PATIENT ON BIPAP PT REFUSED BEGAN TO PUSH AWAY. PT REPOSITIONED AND REORIENTED PT CALMED DOWN SATS AT 92%. HR UP TO 130-138 MILLICENT EXECUTIVE STAFF ASSISTANT IN ROOM AND AWARE, NOTED PT WITH LABORED BREATHING, RECEIVED ORDERS. WILL MEDICATE ACCORDING TO EDILBERTO.
--- NOTE | 2018-04-14 11:05 | Progress Note ---
DATE: April 14, 2018 MEDICINE PROGRESS NOTE SUBJECTIVE: Patient is doing well with no issues. Nurse reports that she was very fidgety today. Seems to be very agitated, likely from alcohol withdrawal in which Librium was given, and now she is much more calm. OBJECTIVE VITAL SIGNS: Temperature is 98.2, pulse is 134, respiratory rate is 20, blood pressure 113/85, pulse ox 100%. She is on nasal cannula. GENERAL: Not in acute distress. Alert and oriented times 3. Cooperative on examination. HEENT: Head is normocephalic and atraumatic. Eyes: Pupils equal, round and reactive to light bilaterally. Extraocular movements intact bilaterally. NECK: Supple. Good range of motion. Throat with no evidence of any erythema or exudates in the posterior pharynx. Has poor dentition. PULMONARY: Clear to auscultation bilaterally. No wheezing. No rales. No rhonchi. No crackles appreciated. CARDIOVASCULAR: Positive S1 and S2. No murmurs, rubs or gallops appreciated. ABDOMEN: Soft, nondistended and nontender to palpation. Bowel sounds present. MUSCULOSKELETAL: Strength is 5/5 throughout. No evidence of any muscle deficit on examination. No weakness appreciated. NEUROLOGICAL: Cranial nerves II-XII are grossly intact. No evidence of any neurological deficits on exam. SKIN: Intact. Warm to touch. Good cap refill. PSYCHIATRIC: Normal affect and mood. EXTREMITIES: No edema. Good range of motion throughout. LAB FINDINGS: Show white count is 11.5, hemoglobin 15, hematocrit 48, and platelets of 241,000. Chemistry: Sodium 141, potassium 3.9, chloride 94, bicarb 33, anion gap of 17, BUN 27, creatinine is 0.98. Calcium was 8.7. Urinalysis concerning for bacteria, UTI. Blood cultures are negative. Gram stain of the wound shows pseudomonas, enterococcus and Staphylococcus aureus. CTA AR runoff showed no evidence of pulmonary embolism. Lower extremity angiogram showed no evidence of any stenosis. IMPRESSION 1. Supraventricular tachycardia, now normal sinus rhythm: Occasionally goes tachycardia. 2. Lower extremity edema, improving. 3. History of congestive heart failure with diastolic dysfunction with ejection fraction of 40% to 45%. 4. Chronic alcohol abuse. 5. Chronic obstructive pulmonary disease: Currently, hypoxic. 6. Metabolic alkalosis secondary to respiratory compensation from underlying chronic obstructive pulmonary disease. PLAN: At this time, the patient in IMCU. Heart rate can fluctuant, but medications are being adjusted accordingly by cardiology. Venous Doppler of the lower extremities found to be negative. CT angiogram of the abdominal aorta with lower extremity runoff showed patent vessels with no evidence of stenosis. She was a little agitated today. Was given some Librium with much improvement. Will continue with IV antibiotics per ID recommendations. She is on Lovenox for DVT prophylaxis. PT and OT is working with her daily. prison now has been placed as well. A.m. labs have been ordered. Job#: [id number] CA
[2018-04-14] MEDS: VANCOMYCIN 1GM/NS 250 ML 250 ML IV SCH (11:30)
[2018-04-14] MEDS: MORPHINE SULFATE INJ 4 MG/ML INJ 1ML IV PRN (12:17)
[2018-04-14] MEDS: ENOXAPARIN SOD INJ 40 MG/0.4 ML SYR SC SCH (16:31)
--- NOTE | 2018-04-14 16:44 | NUR ---
BILATERAL LE DRESSING CHANGED, IV DRESSING CHANGED. BED BATH AND LINEN CHANGE DONE. PT TOLERATED WELL
--- NOTE | 2018-04-14 18:26 | NUR ---
Nutrition Screen Note RD Recommendation for Physician: Continue diet as ordered . Will provide Ensure Enlive TID with meals. Plan of Care: RD following, monitoring for adequacy and tolerance Nutrition reason for involvement: MD Consult - poor Po intake Primary Diagnose(s): SVT Ht:62 in Wt:173 lbs BMI: 31.6kg/m2 IBW:110lbs RD Assessment:(04/14/2018) Initial encounter with patient. Pt was resting after multiple visits. Pt is likely having ETOH withdrawals per healthcare team. Nurse states Pt not been eating well. No N,V, D or chewing or swallowing difficulty noted. Pt has bilateral lower extremity rash. Will provide Ensure Enlive TID with meals. Encourage Po intake. Current Diet: Cardiac diet Malnutrition Evaluation (04/14/2018) The patient does not meet criteria for a specified degree of malnutrition at this time. Will re-evaluate at follow-up as appropriate. Diet Education Needs Assessment: Diet education not indicated. Diet Adequacy: Not meeting calorie needs, Not meeting protein needs Tolerance: Tolerating PO Nutrition Care Level: vera Munson RD, LD, [facility]
--- NOTE | 2018-04-14 18:55 | NUR ---
reports received from Marisol HALL, patient is resting at this time, no distress noted, O2 is within normal level. will continue to monitor.
[2018-04-14] MEDS: ERTAPENEM 1GM/NS 100ML 100 ML IV SCH (19:46)
--- NOTE | 2018-04-14 20:15 | NUR ---
give patient bed bath, patient tolerated well, no agitation at this tie, patient is more alert, she complained of lower back pain. will give PRN pain med, will continue to monitor.
[2018-04-15] VITALS (10 sets, daily range): BP systolic 108–130; BP diastolic 56–91
[2018-04-15] MEDS: CHLORDIAZEPOXIDE HCL 25 MG CAP PO PRN ×2 (02:01→23:55)
--- NOTE | 2018-04-15 02:01 | NUR ---
noted tremors and agitations, Librium PRN given, will continue to monitor.
[2018-04-15] MEDS: METOPROLOL TARTRATE INJ 1 MG/ML VIAL IV PRN (02:47)
[2018-04-15] MEDS: LEVALBUTEROL HCL SOLN NEBU 0.63 MG/3 ML NEB INH SCH ×6 (03:15→23:45)
[2018-04-15 05:30] LABS: BASOPHILS % 0.4 % (0.0-1.0); EOSINOPHILS # (AUTO) 0.1 (0.0-0.4); EOSINOPHILS % 0.9 % (0.0-6.0); HEMATOCRIT 48.5 % (34.2-44.1); HEMOGLOBIN 14.8 g/dL (12.0-16.0); LYMPHOCYTES # (AUTO) 0.6 (1.0-3.2); LYMPHOCYTES % 6.6 % (18.0-39.1); MEAN CORPUSCULAR HEMOGLOBIN 31.5 pg (28-32); MEAN CORPUSCULAR HGB CONC 30.5 g/dL (31-35); MEAN CORPUSCULAR VOLUME 103.2 fL (81-99); MONOCYTES % 9.8 % (4.4-11.3); NEUTROPHILS # (AUTO) 7.9 (2.1-6.9); NEUTROPHILS % 81.4 % (38.7-80.0); PLATELET COUNT 222 x10e3/uL (140-360); RED CELL DISTRIBUTION WIDTH 14.3 % (11.7-14.4)
[2018-04-15 06:26] LABS: ANION GAP 18.1 mmol/L (8-16); CALCIUM 9.1 mg/dL (8.4-10.2); CREATININE, SERUM 0.99 mg/dL (0.57-1.11); POTASSIUM 5.1 mmol/L (3.5-5.1)
--- NOTE | 2018-04-15 07:04 | NUR ---
reports given to upcoming nurse Valeria RN, patient on bed, no distress noted.
[2018-04-15] MEDS: TIOTROPIUM 18 MCG INH POWDER INH SCH (07:36)
[2018-04-15] MEDS: SALMETEROL/FLUTICASONE 250/50 INH SCH (07:36)
[2018-04-15] MEDS: FUROSEMIDE INJ 10 MG/ML 4 ML VIAL IV SCH (08:59)
[2018-04-15] MEDS: FOLIC ACID 1 MG TAB PO SCH (09:00)
[2018-04-15] MEDS: POTASSIUM CHLORIDE 20 MEQ TAB CR PO SCH (09:00)
[2018-04-15] MEDS: FERROUS SULFATE 325 MG TAB PO SCH (09:00)
[2018-04-15] MEDS: VANCOMYCIN 1GM/NS 250 ML 250 ML IV SCH (09:00)
[2018-04-15] MEDS: ASPIRIN 81 MG CHEW TAB PO SCH (09:00)
[2018-04-15] MEDS ORDERED: METOPROLOL TARTRATE 25 MG TAB PO SCH (09:00)
[2018-04-15] MEDS: PANTOPRAZOLE SOD 40 MG TABEC PO SCH (09:00)
[2018-04-15] MEDS: METHYLPREDNISOLONE SOD SUCC 40 MG/ML VIAL 1ML IV SCH ×2 (11:57→20:34)
[2018-04-15 12:43] LABS: ABG PH 7.32 (7.31-7.41)
[2018-04-15 12:44] LABS: ABG HCO3 37 mmol/L (23-28); ABG PCO2 71 mmHg (41-51); ABG PO2 53 mmHg (80-105)
--- NOTE | 2018-04-15 16:00 | NUR ---
FAXED UPDATES ON RT NOTES TO ADDRESS BIPAP AND STOP DATES ON IV TO [facility]. REQUESTED FROM FACILITY AND FAXED, CONFIRMED RECEIPT.
--- NOTE | 2018-04-15 16:09 | NUR ---
ALERTED CM DIRECTOR ABOUT [facility] DENIALS FOR SNF REGARDING THIS PT. AND THE DELAY IT CAUSED. [facility] CM SAM CONTACTED ABOUT IN NETWORK FACILITIES TO WHICH SHE STATES UNABLE TO PROVIDE A CORRECT LIST THEY DO NOT HAVE ONE EITHER.
[2018-04-15] MEDS: METOPROLOL TARTRATE 25 MG TAB PO SCH ×2 (16:30→23:55)
[2018-04-15] MEDS: ENOXAPARIN SOD INJ 40 MG/0.4 ML SYR SC SCH (16:30)
--- NOTE | 2018-04-15 16:36 | Progress Note ---
DATE: April 15, 2018 MEDICINE PROGRESS NOTE SUBJECTIVE: Patient is still a little bit agitated, but alert and oriented. She is still very hypoxic on exam. OBJECTIVE VITAL SIGNS: Temperature is 98.6, pulse 117, respiratory rate 20, blood pressure 138/72, pulse ox 96%. She is on 6 liters nasal cannula. Urine output is good. LABS: White count 9.7, hemoglobin 14.8, hematocrit 48, platelets 222. Chemistries: Sodium 144, potassium 5.1, chloride 99, bicarb 32, anion gap 16, BUN 24, creatinine 0.99. Glucose was 62 this morning, but she is alert and awake right now, and she is eating breakfast. Calcium is 9.1. Blood cultures were negative. Wound culture: Pseudomonas, enterococcus and staphylococcus. PHYSICAL EXAMINATION GENERAL: Not in acute distress. Alert and oriented x3. Cooperative on examination. HEENT: Head is normocephalic and atraumatic. Eyes: Pupils equal, round and reactive to light bilaterally. Extraocular movements intact bilaterally. NECK: Supple. Good range of motion. Throat with no evidence of any erythema or exudates in the posterior pharynx. Has poor dentition. PULMONARY: Clear to auscultation bilaterally. No wheezing. No rales. No rhonchi. No crackles appreciated. CARDIOVASCULAR: Positive S1 and S2. No murmurs, rubs or gallops appreciated. ABDOMEN: Soft, nondistended and nontender to palpation. Bowel sounds are present. MUSCULOSKELETAL: Strength is 5/5 throughout. No evidence of any musculoskeletal deficit on examination. No weakness appreciated. NEUROLOGICAL: Cranial nerves II through XII are grossly intact. No evidence of any neurological deficits on exam. SKIN: Intact. Warm to touch. Good cap refill. PSYCHIATRIC: Normal affect and mood. EXTREMITIES: No edema. Good range of motion throughout. IMPRESSION 1. Supraventricular tachycardia, now normal sinus rhythm with medication adjustments by cardiology. 2. Lower extremity edema, improving. 3. History of congestive heart failure with diastolic dysfunction, ejection fraction of 40% to 45%. 4. Chronic alcohol abuse. 5. Acute exacerbation of chronic obstructive pulmonary disease. 6. Metabolic alkalosis secondary to respiratory compensation. PLAN: At this time, in relation to her cardiac issue, medications were adjusted accordingly for her heart rate. Cardiology is monitoring closely. Her edema has improved tremendously as well. Continue with cardioprotective meds, aspirin and statin as well as beta blockers and low-dose LA inhibitor. She does have some evidence of some withdrawal, and she is on Librium p.r.n., but she was alert and oriented x4 on my examination. I discussed this case with pulmonary. He is going to go ahead and treat her for acute exacerbation of COPD as she is still hypoxic on exam. Otherwise, she will continue to be in IMCU for now and will monitor closely. In the long run, the patient will need jail facility, which I have already placed a consult for case management. Job#: [id number]
--- NOTE | 2018-04-15 16:55 | NUR ---
WOUND CARE CONSULTATION - Follow Up -Pt admitted to ER for SVT, BLE redness, weeping, and open ulcers. - Dr Sung on Case for IV ABX and management of BLE Infection. WC Consulted for BLE Ulcers. - BS 18 - Alternating Pressure Air Mattress in Place - Moderate PUP active. - Wound CX results noted and reported to [facility] for Dr. Sung. Patient on IV ABX. Patient Visit- - Patient in bed calm and in good spirits. AAOX4 with BiPap on. - Dressing already peformed today. CDI. - Light [place] Periwound noted. 100% granulation to open areas. - +1 Edema at ankles. Redness improving. Wound epithelializing at edges. IMPRESSION. BLE- Cellulitis with Open Ulcerations- Healing. RECOMMENDATION: ( Continue Current Treatment Plan): 1. Bilateral Lower Leg Redness with Ulcerations: - Wash with Hibiclens Soap +Sterile Water and Pat Dry Thoroughly with 4x4 Gauze Daily. - Apply Single Layer Xeroform Gauze over open areas and Cover with ABD pad and Wrap with Light Kerlix and Light Justo Wraps Daily. 2. Offload Heels with pillows while in bed. 3. Turn and Reposition every 2 Hours 4. Continue use of Alternating Pressure Air Mattress. 5. Wound Culture LLE. Thank you for consulting with Wound Care. Addendum: 04/15/18 at 1700 by Kevyn Watson RN Amended: Links added.
[2018-04-15] MEDS: BUDESONIDE 0.5MG/2 ML NEB INH SCH (19:00)
--- NOTE | 2018-04-15 19:00 | NUR ---
Report received from AM RN Valeria. Patient received comfortably drinking coffee resting on her bed. Denied pain and no SOB.No respiratory distress noted. Patient continuing on 10 liters high flow oxygen via nasal canula, Spo2 maintained 98% and BIPAP @bedside. Bed in lower position.locked. Call conde within reach. Will continue to monitor.
[2018-04-15] MEDS: ERTAPENEM 1GM/NS 100ML 100 ML IV SCH (20:34)
--- NOTE | 2018-04-15 20:45 | NUR ---
Patient connected to BIPAP at this time. Will continue to monitor.
--- NOTE | 2018-04-15 21:27 | NUR ---
Patient assisted to cleaned and changed diaper. Reposition on her left lateral site, patient tolerated well. Will continue to monitor.
[2018-04-16] VITALS (8 sets, daily range): BP systolic 106–139; BP diastolic 74–91
[2018-04-16] MEDS: LEVALBUTEROL HCL SOLN NEBU 0.63 MG/3 ML NEB INH SCH ×6 (01:50→22:30)
[2018-04-16 05:52] LABS: BASOPHILS % 0.2 % (0.0-1.0); HEMATOCRIT 47.2 % (34.2-44.1); HEMOGLOBIN 14.6 g/dL (12.0-16.0); LYMPHOCYTES # (AUTO) 0.3 (1.0-3.2); LYMPHOCYTES % 3.2 % (18.0-39.1); MEAN CORPUSCULAR HEMOGLOBIN 31.3 pg (28-32); MEAN CORPUSCULAR HGB CONC 30.9 g/dL (31-35); MEAN CORPUSCULAR VOLUME 101.1 fL (81-99); MONOCYTES # (AUTO) 0.1 (0.2-0.8); MONOCYTES % 1.1 % (4.4-11.3); NEUTROPHILS # (AUTO) 9.4 (2.1-6.9); NEUTROPHILS % 94.7 % (38.7-80.0); PLATELET COUNT 219 x10e3/uL (140-360); RED BLOOD COUNT 4.67 x10e6/uL (3.6-5.1); RED CELL DISTRIBUTION WIDTH 14.1 % (11.7-14.4)
[2018-04-16] MEDS: METOPROLOL TARTRATE 25 MG TAB PO SCH ×4 (06:09→23:44)
[2018-04-16 06:15] LABS: ANION GAP 14.9 mmol/L (8-16); CALCIUM 8.9 mg/dL (8.4-10.2); CARBON DIOXIDE 34 mmol/L (22-29); CHLORIDE 102 mmol/L (98-107); CREATININE, SERUM 0.83 mg/dL (0.57-1.11); EST GLOMERULAR FILTRATION RATE > 60 ML/MIN (60-); GLUCOSE 133 mg/dL (74-118); POTASSIUM 4.9 mmol/L (3.5-5.1); SODIUM 146 mmol/L (136-145)
[2018-04-16 06:28] LABS: BLOOD UREA NITROGEN 26 mg/dL (7-26); BUN/CREATININE RATIO 31 (6-25)
--- NOTE | 2018-04-16 07:09 | NUR ---
Report given to oncoming RN Valeria,walking round done.
[2018-04-16 07:34] LABS: LYMPHOCYTES % (MANUAL) 2 % (19-48); NEUTROPHILS % (MANUAL) 98 % (40-74); PLATELET ESTIMATE ADEQUATE; PLATELET MORPHOLOGY COMMENT FEW EDTA CLUMPING; RBC MORPHOLOGY COMMENT NORMAL
[2018-04-16] MEDS: BUDESONIDE 0.5MG/2 ML NEB INH SCH ×2 (08:15→19:35)
[2018-04-16] MEDS: CEFEPIME 1GM/NS 0.9% 50 ML 50 ML IV SCH ×2 (09:05→21:30)
[2018-04-16] MEDS: FOLIC ACID 1 MG TAB PO SCH (09:05)
[2018-04-16] MEDS: FERROUS SULFATE 325 MG TAB PO SCH (09:05)
[2018-04-16] MEDS: POTASSIUM CHLORIDE 20 MEQ TAB CR PO SCH (09:05)
[2018-04-16] MEDS: ASPIRIN 81 MG CHEW TAB PO SCH (09:05)
[2018-04-16] MEDS: METHYLPREDNISOLONE SOD SUCC 40 MG/ML VIAL 1ML IV SCH ×2 (09:05→21:29)
[2018-04-16] MEDS: VANCOMYCIN 1GM/NS 250 ML 250 ML IV SCH (09:05)
[2018-04-16] MEDS: FUROSEMIDE INJ 10 MG/ML 4 ML VIAL IV SCH (09:05)
[2018-04-16] MEDS: PANTOPRAZOLE SOD 40 MG TABEC PO SCH (09:05)
[2018-04-16] MEDS ORDERED: CHLORDIAZEPOXIDE HCL 10 MG CAP PO PRN (12:00)
--- NOTE | 2018-04-16 12:45 | Progress Note ---
DATE: April 16, 2018 MEDICINE PROGRESS NOTE SUBJECTIVE: Patient is doing much better today with no other issues. She is not as confused. Her pCO2 was elevated yesterday, but she is on BiPAP with much improved pCO2. Consecutive repeat in her elevated pCO2. OBJECTIVE VITAL SIGNS: Temperature is 97.8, pulse 74, respiratory rate is 17, blood pressure is 138/78. She is on high flow nasal cannula at 10 liters. GENERAL: Not in acute distress. Alert and oriented x3. Cooperative on examination. HEENT: Head is normocephalic, atraumatic. Eyes: Pupils equal, round, and reactive to light bilaterally. Extraocular movements intact bilaterally. Throat with no evidence of any erythema or exudates in the posterior pharynx. Has poor dentition. NECK: Supple. Good range of motion. PULMONARY: Clear to auscultation bilaterally. No wheezing. No rales. No rhonchi. No crackles appreciated. CARDIOVASCULAR: Positive S1 and S2. No murmurs, rubs, or gallops appreciated. ABDOMEN: Soft, nondistended, and nontender to palpation. Bowel sounds are present. MUSCULOSKELETAL: Strength is 5/5 throughout. No evidence of any musculoskeletal deficit on examination. No weakness appreciated. NEUROLOGICAL: Cranial nerves II through XII are grossly intact. No evidence of any neurological deficits on exam. SKIN: Intact. Warm to touch. Good cap refill. PSYCHIATRIC: Normal affect and mood. EXTREMITIES: No edema. Good range of motion throughout. LABS: White count 9.9, hemoglobin 14, hematocrit is 47, platelets of 219. Chemistries: Sodium is 146, potassium 4.9, chloride 102, bicarb 34, anion gap of 14, BUN is 26, creatinine 0.73, glucose is 132, calcium 8.9. MICROBIOLOGY: Wound cultures are positive. IMPRESSION 1. Supraventricular tachycardia, now normal sinus rhythm with medications adjusted by cardiology. 2. Lower extremity edema, improved with IV diuretics. 3. History of congestive heart failure with diastolic dysfunction with an ejection fraction of 40% to 45%. 4. Chronic alcohol abuse. 5. Acute exacerbation of chronic obstructive pulmonary edema. 6. Lower extremity cellulitis. 7. Metabolic alkalosis secondary to respiratory compensation. PLAN: At this time, in relation to her cardiac issue, no further workup is needed. She is on medications with cardioprotective meds. She is on aspirin, statin as well as beta blockers and low-dose LA inhibitor. There is no evidence of any withdrawals. Pulmonary complication of BiPAP which is improved, likely had some hypercapnic episodes yesterday. She is now alert and oriented x3 with no issues. So, plan is for her to go to nursing home facility, which is still pending. Patient is doing much better right now with no other issues. We will continue the same plan of care, repeat chemistry and CBC in the morning. Work with PT and OT. Job#: [id number] LPA
[2018-04-16] MEDS ORDERED: TOBRAMYCIN 0.3% (OPTH) 5 ML BTL OP SCH (14:00)
[2018-04-16] MEDS: MOXIFLOXACIN HCL(OPTH) 3 ML BTL OP SCH ×3 (14:19→23:35)
[2018-04-16] MEDS: ENOXAPARIN SOD INJ 40 MG/0.4 ML SYR SC SCH (16:23)
[2018-04-16] MEDS ORDERED: CHLORDIAZEPOXIDE HCL 10 MG CAP PO SCH (19:00)
[2018-04-17] VITALS (8 sets, daily range): BP systolic 124–155; BP diastolic 66–83
[2018-04-17] MEDS: MORPHINE SULFATE INJ 4 MG/ML INJ 1ML IV PRN (04:33)
[2018-04-17 05:20] LABS: ANION GAP 12.3 mmol/L (8-16); CREATININE, SERUM 1.06 mg/dL (0.57-1.11); POTASSIUM 4.3 mmol/L (3.5-5.1)
[2018-04-17] MEDS: MOXIFLOXACIN HCL(OPTH) 3 ML BTL OP SCH ×5 (06:22→22:00)
[2018-04-17] MEDS: METOPROLOL TARTRATE 25 MG TAB PO SCH ×3 (06:24→18:21)
[2018-04-17] MEDS: LEVALBUTEROL HCL SOLN NEBU 0.63 MG/3 ML NEB INH SCH ×6 (07:40→23:30)
[2018-04-17] MEDS: BUDESONIDE 0.5MG/2 ML NEB INH SCH ×2 (07:45→19:30)
--- NOTE | 2018-04-17 08:10 | NUR ---
pt resting in bed. no c/o pain or s/s distress. will continue to monitor.
--- NOTE | 2018-04-17 08:10 | NUR ---
pt alert and oriented to self with intermittent awareness of place. continues to remove nc and desats. redirected. bed alarm on.
[2018-04-17] MEDS: VANCOMYCIN 1GM/NS 250 ML 250 ML IV SCH (08:44)
[2018-04-17] MEDS ORDERED: ACETAZOLAMIDE 250 MG TAB PO ONE (09:00)
[2018-04-17] MEDS ORDERED: LORAZEPAM 0.5 MG TAB PO PRN (11:00)
[2018-04-17] MEDS: CEFEPIME 1GM/NS 0.9% 50 ML 50 ML IV SCH ×2 (11:21→21:00)
[2018-04-17] MEDS: FUROSEMIDE INJ 10 MG/ML 4 ML VIAL IV SCH (11:21)
[2018-04-17] MEDS: PANTOPRAZOLE SOD 40 MG TABEC PO SCH (11:21)
[2018-04-17] MEDS: METHYLPREDNISOLONE SOD SUCC 40 MG/ML VIAL 1ML IV SCH ×2 (11:21→21:00)
[2018-04-17] MEDS: ASPIRIN 81 MG CHEW TAB PO SCH (11:21)
[2018-04-17] MEDS: FERROUS SULFATE 325 MG TAB PO SCH (11:21)
[2018-04-17] MEDS: FOLIC ACID 1 MG TAB PO SCH (11:21)
[2018-04-17] MEDS: POTASSIUM CHLORIDE 20 MEQ TAB CR PO SCH (11:21)
--- NOTE | 2018-04-17 13:28 | Progress Note ---
DATE: April 17, 2018 MEDICINE PROGRESS NOTE SUBJECTIVE: Patient is doing much better today. Occasionally, she will get very agitated according to the nurse. Librium is not working, which Ativan now has been started. OBJECTIVE VITAL SIGNS: Temperature 98.3, pulse 71, respiratory rate is 18, blood pressure is 128/66, pulse ox is 100%. She is on high flow oxygen at 7 liters. GENERAL: Not in acute distress. Alert and oriented x3. Cooperative on examination. HEENT: Head is normocephalic, atraumatic. Eyes: Pupils equal, round, and reactive to light bilaterally. Extraocular movements intact bilaterally. Throat with no evidence of any erythema or exudates in the posterior pharynx. Has poor dentition. NECK: Supple. Good range of motion. PULMONARY: Clear to auscultation bilaterally. No wheezing. No rales. No rhonchi. No crackles appreciated. CARDIOVASCULAR: Positive S1, S2. No murmurs, rubs, or gallops appreciated. ABDOMEN: Soft, nondistended, and nontender to palpation. Bowel sounds are present. MUSCULOSKELETAL: Strength is 5/5 throughout. No evidence of any musculoskeletal deficit on examination. No weakness appreciated. NEUROLOGICAL: Cranial nerves II through XII are grossly intact. No evidence of any neurological deficits on exam. SKIN: Intact. Warm to touch. Good cap refill. PSYCHIATRIC: Normal affect and mood. EXTREMITIES: No edema. Good range of motion throughout. LABS: White count 9.9, hemoglobin 14.6, hematocrit is 47, platelets of 219. Blood gas from yesterday, pH of 7.32, pCO2 of 71, alk phos 37. Chemistries: Sodium 141, potassium 4.3, chloride 99, bicarb 35, anion gap of 12, BUN is 33, creatinine is 1.06, calcium is 9. Urinalysis concerning for UTI. IMPRESSION 1. Supraventricular tachycardia, now with normal sinus rhythm with medications adjusted by cardiology. 2. Lower extremity edema, held IV diuretics. 3. History of congestive heart failure with diastolic dysfunction with an ejection fraction of 40-45%. 4. Chronic alcohol abuse. 5. Acute exacerbation of congestive heart failure and edema. 6. Lower extremity edema. 7. Evidence of heart failure secondary to respiratory compensation, being followed and monitored by Dr. Harrison. PLAN: At this time, in relation to her cardiac issue, she is currently doing well. She is going to continue the same medications with cardioprotective meds. She is on aspirin, statin as well as beta-blockers and low-dose LA inhibitor. In relation to her agitation and alcohol abuse, we are going to discontinue the Librium and add p.r.n. Ativan 0.5 mg. We are going to await for the placement to [facility] for further rehabilitation. Patient is very weak and occasionally very agitated, but currently she is calm and stable. Job#: [id number] ESTEFANI
--- NOTE | 2018-04-17 14:20 | NUR ---
Visit made by the Spiritual Care Department Pastoral Visitor, Brad Avalos. PV provided pastoral presence, prayer, hospitality, communion, and supportive listening. Pastoral Visitor informed pt/family of the scope of [facility] and availability. SANDEEP CLARK Human Resources Department Supervisor Spiritual Care Department O: [phone] Pager: [phone] calling from)
--- NOTE | 2018-04-17 15:00 | NUR ---
pt c/o sob "i feel like i cant breathe". o2 sats 94% on high flow nc. placed on bipap
[2018-04-17] MEDS: ENOXAPARIN SOD INJ 40 MG/0.4 ML SYR SC SCH (18:21)
--- NOTE | 2018-04-17 19:26 | NUR ---
pt continues intermittent confusion/AMS. lethargic throughout shift. remained on HFNC with sats in 90s% unless pulling off HFNC. pt redirected and nc repositioned. pt currently on bipap resting. was at bedside earlier in day. vs have remained stable. pt bathed, wound dressings changed and CDI. linens changed. pt pending weaning of o2/bipap to be able to continue transfer to [facility].
--- NOTE | 2018-04-17 19:30 | NUR ---
Received patient hemodynamically stable, asleep on BIPAP but easy to arouse.
[2018-04-18] VITALS (8 sets, daily range): BP systolic 126–143; BP diastolic 63–82
--- NOTE | 2018-04-18 02:00 | NUR ---
Patient awake, request to be off Bipap, put high flow nasal cannula, saturating well above 90 %. Cleaned, dirty linens changed, repositioned for comfort and settled calmly in bed. Vitals stable
[2018-04-18] MEDS: MORPHINE SULFATE INJ 4 MG/ML INJ 1ML IV PRN (03:00)
[2018-04-18] MEDS: LEVALBUTEROL HCL SOLN NEBU 0.63 MG/3 ML NEB INH SCH ×6 (03:00→23:45)
[2018-04-18] MEDS: MOXIFLOXACIN HCL(OPTH) 3 ML BTL OP SCH ×5 (06:37→21:10)
[2018-04-18] MEDS: METOPROLOL TARTRATE 25 MG TAB PO SCH ×5 (06:39→23:33)
--- NOTE | 2018-04-18 07:06 | NUR ---
Patient handed over, asleep, vitals stable on high flow oxygen
[2018-04-18] MEDS: BUDESONIDE 0.5MG/2 ML NEB INH SCH ×2 (07:31→20:00)
[2018-04-18] MEDS: POTASSIUM CHLORIDE 20 MEQ TAB CR PO SCH (08:19)
[2018-04-18] MEDS: FUROSEMIDE INJ 10 MG/ML 4 ML VIAL IV SCH (08:19)
[2018-04-18] MEDS: METHYLPREDNISOLONE SOD SUCC 40 MG/ML VIAL 1ML IV SCH (08:19)
[2018-04-18] MEDS: CEFEPIME 1GM/NS 0.9% 50 ML 50 ML IV SCH ×2 (08:19→20:44)
[2018-04-18] MEDS: FOLIC ACID 1 MG TAB PO SCH (08:19)
[2018-04-18] MEDS: PANTOPRAZOLE SOD 40 MG TABEC PO SCH (08:19)
[2018-04-18] MEDS: FERROUS SULFATE 325 MG TAB PO SCH (08:19)
[2018-04-18] MEDS: ASPIRIN 81 MG CHEW TAB PO SCH (08:19)
[2018-04-18] MEDS: VANCOMYCIN 1GM/NS 250 ML 250 ML IV SCH (08:48)
[2018-04-18] MEDS ORDERED: PREDNISONE 20 MG TAB PO SCH (09:00)
--- NOTE | 2018-04-18 13:46 | Progress Note ---
DATE: April 18, 2018 MEDICINE PROGRESS NOTE SUBJECTIVE: Patient is doing well today with no complaints. She required BiPAP at bedtime. She is still on high flow oxygen, but now 5 L. She is improving daily. OBJECTIVE VITAL SIGNS: Temperature is 97.9, pulse 72, respiratory rate is 22, blood pressure 136/75, pulse ox 100% on what is reported to be now 6 L of nasal cannula high flow. GENERAL: Not in acute distress. Alert and oriented times 3. Cooperative on examination. HEENT: Head is normocephalic and atraumatic. Eyes: Pupils equal, round and reactive to light bilaterally. Extraocular movements intact bilaterally. NECK: Supple. Good range of motion. Throat with no evidence of any erythema or exudates in the posterior pharynx. Has poor dentition. PULMONARY: Clear to auscultation bilaterally. No wheezing. No rales. No rhonchi. No crackles appreciated. CARDIOVASCULAR: Positive S1 and S2. No murmurs, rubs or gallops appreciated. ABDOMEN: Soft, nondistended and nontender to palpation. Bowel sounds present. MUSCULOSKELETAL: Strength is 5/5 throughout. No evidence of any muscle deficit on examination. No weakness appreciated. NEUROLOGICAL: Cranial nerves II-XII are grossly intact. No evidence of any neurological deficits on exam. SKIN: Intact. Warm to touch. Good cap refill. PSYCHIATRIC: Normal affect and mood. EXTREMITIES: No edema. Good range of motion throughout. LABS: White count is 9.9, hemoglobin 14, hematocrit is 47, and platelets of 219,000. Chemistry: Sodium is 141, potassium 4.3, chloride 98, bicarb 35, anion gap of 12, BUN 33, creatinine is 1, glucose is 133. Calcium is 9. Urinalysis seems to be negative. Wound cultures noted. Blood cultures no growth to date. IMAGING STUDIES: None noted. IMPRESSION 1. Supraventricular tachycardia, now with normal sinus rhythm on medication adjusted per cardiology. 2. Lower extremity edema: On intravenous diuretics and now improving. 3. History of congestive heart failure with diastolic dysfunction with ejection fraction of 40% to 45%. 4. Chronic alcohol abuse. 5. Acute exacerbation of congestive heart failure with edema, improving. 6. Evidence of heart failure secondary to respiratory compensation. 7. Acute exacerbation of chronic obstructive pulmonary disease. 8. Wound on the lower extremity was found to be positive. PLAN: At this time, from a cardiac standpoint it seems like the heart rate is better and improved. She is getting diuretics for her underlying lower extremity edema. She is not confused. She is not going through any alcohol withdrawal. Patient does have p.r.n. Ativan. She continues to be very short of breath on high flow oxygen. Pulmonary is following. They are treating her as acute exacerbation of COPD. She is on neb treatments, steroids as well. She continues to be on IV antibiotics. In relation to her wound culture, she continues to be on IV antibiotics for that as well. Job#: [id number] BRIANNA
--- NOTE | 2018-04-18 14:20 | NUR ---
GOT APPROVAL, TOOK CLINCALS TO NURSES STATION WITH RTF, SIGNED IMM FILED IN CHART AND ALERTED CM TO COMPLETE THE TRANSFER. PT GOING TO RM [address] POLLARD
[2018-04-18] MEDS: ENOXAPARIN SOD INJ 40 MG/0.4 ML SYR SC SCH (16:28)
--- NOTE | 2018-04-18 16:31 | NUR ---
PT CHANGED AND REPOSITIONED SWITCHED TO 4L VIA NC PT SATS 95% AT THIS TIME DENIES ANY DISTRESS. CALL LIGHT WITHIN REACH SIDE RAILS UPX2 WILL CONTINUE TO MONITOR
--- NOTE | 2018-04-19 01:56 | NUR ---
patient got desaturated bc she keeps trying to take off her O2 and Addendum: 04/19/18 at 0158 by Maki Osei RN continued.. also her BIPAP earlier. re oriented patient that she need it on. will continue to monitor.
[2018-04-19] MEDS: LEVALBUTEROL HCL SOLN NEBU 0.63 MG/3 ML NEB INH SCH ×3 (02:30→11:10)
[2018-04-19 04:28] VITALS: BP 145/98
[2018-04-19 05:57] LABS: BASOPHILS % 0.2 % (0.0-1.0); HEMATOCRIT 49.2 % (34.2-44.1); HEMOGLOBIN 15.3 g/dL (12.0-16.0); LYMPHOCYTES # (AUTO) 0.5 (1.0-3.2); LYMPHOCYTES % 4.1 % (18.0-39.1); MEAN CORPUSCULAR HEMOGLOBIN 30.8 pg (28-32); MEAN CORPUSCULAR HGB CONC 31.1 g/dL (31-35); MEAN CORPUSCULAR VOLUME 99.2 fL (81-99); MONOCYTES # (AUTO) 0.6 (0.2-0.8); MONOCYTES % 4.9 % (4.4-11.3); NEUTROPHILS # (AUTO) 10.4 (2.1-6.9); NEUTROPHILS % 89.5 % (38.7-80.0); PLATELET COUNT 212 x10e3/uL (140-360); RED BLOOD COUNT 4.96 x10e6/uL (3.6-5.1); RED CELL DISTRIBUTION WIDTH 13.8 % (11.7-14.4)
[2018-04-19 06:29] LABS: ANION GAP 15.6 mmol/L (8-16); CALCIUM 8.9 mg/dL (8.4-10.2); CREATININE, SERUM 1.32 mg/dL (0.57-1.11); POTASSIUM 4.6 mmol/L (3.5-5.1)
[2018-04-19] MEDS: MOXIFLOXACIN HCL(OPTH) 3 ML BTL OP SCH ×3 (06:48→13:14)
[2018-04-19] MEDS: METOPROLOL TARTRATE 25 MG TAB PO SCH ×2 (07:06→12:30)
[2018-04-19] MEDS: BUDESONIDE 0.5MG/2 ML NEB INH SCH (07:25)
[2018-04-19 08:00] VITALS: BP 147/88
[2018-04-19] MEDS: FUROSEMIDE INJ 10 MG/ML 4 ML VIAL IV SCH (08:27)
[2018-04-19] MEDS: CEFEPIME 1GM/NS 0.9% 50 ML 50 ML IV SCH (08:27)
[2018-04-19] MEDS: FOLIC ACID 1 MG TAB PO SCH (08:27)
[2018-04-19] MEDS: ASPIRIN 81 MG CHEW TAB PO SCH (08:27)
[2018-04-19] MEDS: FERROUS SULFATE 325 MG TAB PO SCH (08:27)
[2018-04-19] MEDS: POTASSIUM CHLORIDE 20 MEQ TAB CR PO SCH (08:28)
[2018-04-19] MEDS: PANTOPRAZOLE SOD 40 MG TABEC PO SCH (08:28)
[2018-04-19] MEDS ORDERED: PREDNISONE 20 MG TAB PO SCH (09:00)
[2018-04-19] MEDS: VANCOMYCIN 1GM/NS 250 ML 250 ML IV SCH (09:15)
[2018-04-19 12:00] VITALS: BP 118/79
--- NOTE | 2018-04-19 12:45 | NUR ---
PT DISCHARGED AT THIS TIME RX COPY AND DC INSTRUCTIONS PUT INTO SNF PACKET. RX GIVEN TO INSTRUCTED BY TO BE FILLED AND TAKEN TO SNF. SPOKE TO VAIBHAV AT [facility] CROSSING IV DCD TO L SIDE, PRESSURE DRESSING APPLIED. ETA PER [facility] 1445.
--- NOTE | 2018-04-19 12:51 | NUR ---
MET W THE PT AND AT THE BEDSIDE. DISCUSSED PURPOSE OF IMM. PT VERBALIZED UNDERSTANDING. SIGNED IMM. COPY GIVEN TO PT AND COPY TO CHART. PT PROVIDED CHOICE FOR AMBULANCE TRANSPORT TO [facility]. PT CHOSE [facility]. CHOICE LETTER SIGNED BY SPOUSE AND PLACED ON FRONT OF CHART. DC DISPO CHECKED, SIGNED AND PLACED IN CHART.
--- NOTE | 2018-04-19 18:21 | Discharge Summary ---
FINAL DISCHARGE DIAGNOSES 1. Supraventricular tachycardia, now normal sinus rhythm. 2. Lower extremity edema, resolved. 3. History of congestive heart failure with diastolic dysfunction. 4. Chronic alcohol abuse. 5. Acute exacerbation of congestive heart failure. 6. Acute exacerbation of chronic obstructive pulmonary disease. 7. Lower extremity wound infection. CONSULTANTS: Cardiology, Pulmonary, Wound Care. VITAL SIGNS: Temperature 98.4, pulse 67, respiratory rate is 20, blood pressure 147/ , pulse ox 100% on 4 liters nasal cannula. LAB FINDINGS: White count 11.5, hemoglobin 15, hematocrit is 49, platelets of 212. CHEMISTRY: Sodium 142, potassium 4.6, chloride 99, bicarb 32, anion gap of 15, BUN is 45, creatinine is 1.3, glucose 109, calcium 8.9. Urinalysis negative. MICROBIOLOGY: Blood cultures no growth. Wound cultures show pseudomonas, enterococcus and staphylococcus. IMAGING STUDIES: Chest x-ray shows some peribronchial hazy opacities due to bronchitis. Lower extremity venous Doppler was found to be negative for any DVT. Lower extremity arterial Doppler concerning for stenosis, but a CT angiogram runoff shows no evidence of any significant stenosis in the lower extremities. There is no evidence of pulmonary embolism as well. There was an aneurysmal dilatation in the infrarenal abdominal aorta diameter 2.4 cm which needs to be followed up as an outpatient, which I have discussed with the patient, with the PCP. A CT chest, again no evidence of pulmonary embolism. A 2-D echo shows an EF of 40% to 45%. HOSPITAL COURSE: This is a 72-year-old female who was sent to the ED from the cardiology clinic due to patient having a high heart rate and found to be in SVT. Patient was admitted and evaluated. In relation to her heart rate and SVT, Cardiology was consulted and her medications were adjusted accordingly. She improved while she was in the hospital in her heart rate, and she had no other issues. A 2-D echo shows an EF of 40% to 45%. No further workup needed by Cardiology. In relation to her COPD, she was in acute exacerbation for which Pulmonary was consulted. Patient was initiated on BiPAP and then transitioned to high-flow and then transitioned to nasal cannula. Patient was stable on neb treatments and antibiotics. The patient will be discharged on oral steroids as well as neb treatments and antibiotics upon discharge to a senior care facility. In relation to her lower extremity edema, she was being treated for acute exacerbation of CHF with diastolic dysfunction with IV diuretics. She improved tremendously while she was here in the hospital from a respiratory standpoint. In relation to her lower extremity wounds, her wound culture was to be positive for pseudomonas, enterococcus and staphylococcus. Patient will be discharged on oral antibiotics. Patient with PT and OT while here in the hospital. They recommended senior care facility. On the day of discharge, vital signs stable, labs reviewed and stable. Patient seen and evaluated and examined thoroughly on the day of discharge with no new complaints. Patient verbalized understanding and agreed with the plan of care, to follow up as an outpatient with the primary care physician in one week and the deposit refund clerk in two weeks' time, wound care in about two weeks' time. MEDICATIONS: See med reconciliation form. DISPOSITION: To home. CONDITION: Stable. DIET: Heart-healthy. In the event of any worsening symptoms, the patient advised to come back to the ED for further evaluation. Discharge summary took greater than 35 minutes. FADUMO WRIGHT MD Job#: [id number] HOWARD
== END 2018-04-19 15:18 | disposition other institution (70) | DRG 308 ==
LOC: ER 12:57 → ERHOLD 16:05 → MED/SURG2 22:41 → IMCU 04-13 12:13
PROVIDERS: ADMIT Internal Medicine; ATTEND Internal Medicine
DX: I47.1 Supraventricular tachycardia (principal); I50.33 Acute on chronic diastolic (congestive) heart failure; J96.21 Acute and chronic respiratory failure with hypoxia; J44.1 Chronic obstructive pulmonary disease with (acute) exacerbation; E87.4 Mixed disorder of acid-base balance; L03.116 Cellulitis of left lower limb; I13.0 Hypertensive heart and chronic kidney disease with heart failure and stage 1 through stage 4 chronic kidney disease, or unspecified chronic kidney disease; N39.0 Urinary tract infection, site not specified; R60.0 Localized edema; F10.20 Alcohol dependence, uncomplicated; B96.5 Pseudomonas (aeruginosa) (mallei) (pseudomallei) as the cause of diseases classified elsewhere; B95.2 Enterococcus as the cause of diseases classified elsewhere; B95.62 Methicillin resistant Staphylococcus aureus infection as the cause of diseases classified elsewhere; Z16.24 Resistance to multiple antibiotics; I73.9 Peripheral vascular disease, unspecified; I25.10 Atherosclerotic heart disease of native coronary artery without angina pectoris; K70.30 Alcoholic cirrhosis of liver without ascites; G47.33 Obstructive sleep apnea (adult) (pediatric); E88.09 Other disorders of plasma-protein metabolism, not elsewhere classified; E77.8 Other disorders of glycoprotein metabolism; F17.210 Nicotine dependence, cigarettes, uncomplicated; I65.23 Occlusion and stenosis of bilateral carotid arteries; E87.6 Hypokalemia; E66.01 Morbid (severe) obesity due to excess calories; Z68.29 Body mass index [BMI] 29.0-29.9, adult; Z79.52 Long term (current) use of systemic steroids; I72.2 Aneurysm of renal artery; Z99.81 Dependence on supplemental oxygen; J40 Bronchitis, not specified as acute or chronic; I27.20 Pulmonary hypertension, unspecified; N18.3 Chronic kidney disease, stage 3 (moderate)
CPT/HCPCS: 36415; 36430; 36600; 71045; 71260; 75635; 80048; 80053; 80202; 81001; 82140; 82550; 82553; 82805; 82948; 83605; 83735; 83880; 84100; 84443; 84484; 85025; 87040; 87071; 87186; 87205; 93005; 93306; 93925; 93970; 94640; 94660; 94664; 97139; 99284; J0153; J0692; J1650; J1940; J2250; J2270; J2405; J2920; J3370; J7030; J7512; Q9967

== ENCOUNTER 2018-07-18 16:30 | Inpatient (IN) | payer MEDICARE, OTHER ==
[~2018-07-18] VITALS: Ht 149.9 cm; Wt 59.0 kg
--- OUTSIDE RECORDS SUMMARY | 2018-07-18 16:35 | XMS REPORT ---
Author Author [facility] Address Unknown Phone Unavailable Care Team Providers Care Manager Skilled Name Role Phone Ema WRIGHT Unavailable Unavailable Problems This patient has no known problems. Allergies, Adverse Reactions, Alerts This patient has no known allergies or adverse reactions. Medications This patient has no known medications. Results Test Description Test Time Test Comments Text Results Atomic Results Result Comments CHEST SINGLE (PORTABLE) 2018-04-13 19:56:00 [place] [address] Patient Name: YUSRA JOSHI MR #: [id number] : 1945 Age/Sex: 72/F Req #: [id number] Adm Physician: FADUMO WRIGHT MD Ordered by: KRISTY CAPELLAN MD Report #: [id number] Location: [facility] Room/Bed: [place] [address] Procedure: [id number] DX/CHEST SINGLE (PORTABLE) Exam Date: 04/13/18 Exam Time: 1944 REPORT STATUS: Signed EXAMINATION: CHEST SINGLE (PORTABLE) DIAMOND CATION: Shortness of breath per Dr. Capellan [id number] COMPARISON: None FINDINGS: TUBES and LINES: None. LUNGS: Chronic appearing changes in the lungs. There is no evidence of pneumonia or pulmonary edema. PLEURA: Small right pleural effusion. No pneumothorax. HEART AND MEDIASTINUM: Cardiomegaly with likely pulmonary hypertension BONES AND SOFT TISSUES: No acute osseous lesion. Soft tissues are unremarkable. UPPER ABDOMEN: No free air under the diaphragm. IMPRESSION: Small right pleural effusion with adjacent atelectasis but are seen on recent CT scan. Cardiomegaly with likely sequela of pulmonary hypertension. Signed by: Dr. Aneudy Talamantes M.D. on 04/13/2018 7:58 PM Dictated By: ANEUDY TALAMANTES MD, MD 57 Transcribed By: LIA on 04/13/181957 COPY TO: KRISTY CAPELLAN MD CTA ABD/PEL/RUN OFF 2018-04-13 19:02:00 [place] [address] Patient Name: YUSRA JOSHI MR #: [id number] : 1945 Age/Sex: 72/F Req #: [id number] Adm Physician: FADUMO WRIGHT MD Ordered by: KRISTY CAPELLAN MD Report #: [id number] Location: [facility] Room/Bed: [place] [address] Procedure: [id number] CT/CTA ABD/PEL/RUN OFF Exam Date: 04/13/18 Exam Time: 1810 REPORT STATUS: Signed EXAM: CT Chest pulmonary embolism protocol and CT, abdo men and pelvis runoff WITH contrast 04/13/2018 12:00 PM INDICATION: Shortness of breath. Bilateral lower leg edema. SVT. COMPARISON: None TECHNIQUE: Chest, abdomen and pelvis with runoff was scanned utilizing a multidetector helical scanner after administration of IV contrast. Coronal and sagittal reformations were obtained. Chest pulmonary intervals in protocol was performed. CTA abdomen and pelvis, lower extremities was performed. 3-D reformatted images were obtained of the abdominal, pelvic and bilateral lower extremity arterial system. Protocol was performed. IV CONTRAST: 100 mL of Isovue-370 RADIATION DOSE: Total DLP: 1195.06 mGy*cm Estimated effective dose: (DLP x 0.014 x size factor) mSv All CT scans are performed using radiation dose reduction techniques. Technical factors are evaluated and adjusted to ensure appropriate moderation of exposure. Automated dose management technology is applied to adjust the radiation dose to minimize exposure while achieving a diagnostic-quality image. COMPLICATIONS: None FINDINGS: LINES/ TUBES: None. LUNGS AND AIRWAYS: Chronic appearing changes in the lungs with regions of scarring/atelectasis most pronounced in the lower lobe and in the left lung. Airways are normal. PLEURA: Small right pleural effusion with associated atelectasis. Calcified pleural plaques most pronounced in the left posterior chest. HEART AND MEDIASTINUM: No pulmonary embolism is seen. The thyroid gland is normal. No mediastinal, hilar or axillary lymphadenopathy. Cardiomegaly with likely sequela of pulmonary hypertension. The pulmonary artery measures 3.4 cm in diameter.. There is no pericardial effusion. There is scattered atherosclerotic calcification in the coronary arteries, aorta and branch vessels. HEPATOBILIARY: No focal hepatic lesions. No biliary ductal dilation. GALLBLADDER: No radio-opaque stones or sludge. No wall thickening. SPLEEN: No splenomegaly. PANCREAS: No focal masses or ductal dilatation. ADRENALS: No adrenal nodules KIDNEYS/URETERS: Chronic appearing scarring in the kidneys. No hydronephrosis. No cystic or solid mass lesions. No stones. GI TRACT: No abnormal distention, wall thickening, or evidence of bowel obstruction. Moderate size hiatal hernia. Scattered diverticulosis without evidence of diverticulitis. PELVIC ORGANS/BLADDER: Unremarkable. LYMPH NODES: No lymphadenopathy. VESSELS: Mild aneurysmal dilatation of the infrarenal abdominal aorta with a maximal diameter of 2.4 cm. PERITONEUM / RETROPERITONEUM: No free air or fluid. BONES: Postsurgical change in the left hip/left femur. SOFT TISSUES: Mild diffuse anasarca. Pelvis vessels: Bilateral common, external, and internal iliac arteries are patent. Right lower extremity: Right common femoral, profundus femoral, superficial femoral, and popliteal arteries are patent. There is a patent trifurcation with both anterior and posterior tibial arteries supply the foot. The blood supply to the foot is diminutive. Left lower extremity: Right common femoral, profundus femoral, superficial femoral, and popliteal arteries are patent. There is a patent trifurcation with both anterior and posterior tibial arteries supply the foot. The blood supply to the foot is diminutive. IMPRESSION: Mild aneurysmal dilatation of the infrarenal abdominal aorta with a maximal diameter of 2.4 cm. Regions of scattered atherosclerotic calcification in the coronary arteries, aorta and branch vessels. The blood supply to the right and left foot is diminutive. No pulmonary embolism is seen. Small right pleural effusion with associated atelectasis. Calcified pleural plaques most pronounced in the left posterior chest. Cardiomegaly with likely sequela of pulmonary hypertension. Signed by: Dr. Aneudy Talamantes M.D. on 04/13/2018 7:20 PM Dictated By: ANEUDY TALAMANTES MD, MD 19 Transcribed By: LIA on 04/13/181919 COPY TO: KRISTY CAPELLAN MD CT CHEST W 2018-04-13 19:02:00 [place] [address] Patient Name: YUSRA JOSHI MR #: [id number] : 1945 Age/Sex: 72/F Req #: [id number] [facility] Physician: FADUMO WRIGHT MD Ordered by: KRISTY CAPELLAN MD Report #: [id number] Location: [facility] Room/Bed: [place] [address] Procedure: [id number] CT/CT CHEST W Exam Date: 04/13/18 Exam Time: 1802 REPORT STATUS: Signed EXAM: CT Chest pulmonary embolism protocol and CT, abdomen and pelvis runoff WITH contrast 04/13/2018 12:00 PM INDICATION: Shortness of breath. Bilateral lower leg edema. SVT. COMPARISON: None TECHNIQUE: Chest, abdomen and pelvis with runoff was scanned utilizing a multidetector helical scanner after administration of IV contrast. Coronal and sagittal reformations were obtained. Chest pulmonary intervals in protocol was performed. CTA abdomen and pelvis, lower extremities was performed. 3-D reformatted images were obtained of the abdominal, pelvic and bilateral lower extremity arterial system. Protocol was performed. IV CONTRAST: 100 mL of Isovue-370 RADIATION DOSE: Total DLP: 1195.06 mGy*cm Estimated effective dose: (DLP x 0.014 x size factor) mSv All CT scans are performed using radiation dose reduction techniques. Technical factors are evaluated and adjusted to ensure appropriate moderation of exposure. Automated dose management technology is applied to adjust the radiation dose to minimize exposure while achieving a diagnostic-quality image. COMPLICATIONS: None FINDINGS: LINES/ TUBES: None. LUNGS AND AIRWAYS: Chronic appearing changes in the lungs with regions of scarring/atelectasis most pronounced in the lower lobe and in the left lung. Airways are normal. PLEURA: Small right pleural effusion with associated atelectasis. Calcified pleural plaques most pronounced in the left posterior chest. HEART AND MEDIASTINUM: No pulmonary embolism is seen. The thyroid gland is normal. No mediastinal, hilar or axillary lymphadenopathy. Cardiomegaly with likely sequela of pulmonary hypertension. The pulmonary artery measures 3.4 cm in diameter.. There is no pericardial effusion. There is scattered atherosclerotic calcification in the coronary arteries, aorta and branch vessels. HEPATOBILIARY: No focal hepatic lesions. No biliary ductal dilation. GALLBLADDER: No radio-opaque stones or sludge. No wall thickening. SPLEEN: No splenomegaly. PANCREAS: No focal masses or ductal dilatation. ADRENALS: No adrenal nodules KIDNEYS/URETERS: Chronic appearing scarring in the kidneys. No hydronephrosis. No cystic or solid mass lesions. No stones. GI TRACT: No abnormal distention, wall thickening, or evidence of bowel obstruction. Moderate size hiatal hernia. Scattered diverticulosis without evidence of diverticulitis. PELVIC ORGANS/BLADDER: Unremarkable. LYMPH NODES: No lymphadenopathy. VESSELS: Mild aneurysmal dilatation of the infrarenal abdominal aorta with a maximal diameter of 2.4 cm. PERITONEUM / RETROPERITONEUM: No free air or fluid. BONES: Postsurgical change in the left hip/left femur. SOFT TISSUES: Mild diffuse anasarca. Pelvis vessels: Bilateral common, external, and internal iliac arteries are patent. Right lower extremity: Right common femoral, profundus femoral, superficial femoral, and popliteal arteries are patent. There is a patent trifurcation with both anterior and posterior tibial arteries supply the foot. The blood supply to the foot is diminutive. Left lower extremity: Right common femoral, profundus femoral, superficial femoral, and popliteal arteries are patent. There is a patent trifurcation with both anterior and posterior tibial arteries supply the foot. The blood supply to the foot is diminutive. IMPRESSION: Mild aneurysmal dilatation of the infrarenal abdominal aorta with a maximal diameter of 2.4 cm. Regions of scattered atherosclerotic calcification in the coronary arteries, aorta and branch vessels. The blood supply to the right and left foot is diminutive. No pulmonary embolism is seen. Small right pleural effusion with associated atelectasis. Calcified pleural plaques most pronounced in the left posterior chest. Cardiomegaly with likely sequela of pulmonary hypertension. Signed by: Dr. Aneudy Talamantes M.D. on 04/13/2018 7:20 P M Dictated By: ANEUDY TALAMANTES MD, MD 19 Transcribed By: LIA on 04/13/181919 COPY TO: KRISTY CAPELLAN MD CHEST SINGLE (PORTABLE) 2018-04-12 05:41:00 [place] [address] Patient Name: YUSRA JOSHI MR #: [id number] : 1945 Age/Sex: 72/F Req #: [id number] Adm Physician: FADUMO WRIGHT MD Ordered by: MARISELA PIZANO MD Report #: [id number] Location: MED/SURG2 Room/Bed: [facility] Procedure: [id number] DX/CHEST SINGLE (PORTABLE) Exam Date: 04/12/18 Exam Time: 05 REPORT STATUS: Signed EXAM: XR CHEST 1 VIEW DATE: 04/12/2018 7:00 AM INDICATION: Shortness of breath COMPARISON: 04/11/2018, no report available FINDINGS: Lines and Tubes: None Heart and Mediastinum: Heart is mildly enlarged. Aortic vascular calcifications present. Tortuous aorta. Lungs and Pleura: Minimal opacities lung bases suggesting atelectasis and probable biapical scarring, stable. Bones and Soft Tissues: No acute findi ngs. IMPRESSION: 1. No significant interval change. Signed by: Dr. Saul Oviedo MD on 04/12/2018 5:42 AM Dictated By: SAUL OVIEDO MD 1 Transcribed By: LIA on 04/12/18541 COPY TO: MARISELA PIZANO MD CHEST SINGLE (PORTABLE) 2018-04-11 17:30:00 [place] [address] Patient Name: YUSRA JOSHI MR #: [id number] : 1945 Age/Sex: 72/F Req #: [id number] Adm Physician: FADUMO WRIGHT MD Ordered by: MARISELA PIZANO MD Report #: [id number] Location: [facility] Room/Bed: [place] [address] Procedure: [id number] DX/CHEST SINGLE (PORTABLE) Exam Date: 04/11/18 Exam Time: 1503 REPORT STATUS: Signed EXAMINATION: CHEST SINGLE (PORTABLE) INDICATION: Shortness of breath. Tachycardia. COMPARISON: 08/02/2012 FINDINGS: TUBES and LINES: None. LUNGS: Lungs are well inflated. Mild perihilar peribronchial hazy opacity could be due to bronchitis. There is no evidence of pneumonia or pulmonary edema. PLEURA: No pleural effusion or pneumothorax. HEART AND MEDIASTINUM: The cardiomediastinal silhouette is unremarkable. BONES AND SOFT TISSUES: No acute osseous lesion. Soft tissues are unremarkable. UPPER ABDOMEN: No free air under the diaphragm. IMPRESSION: Mild perihilar peribronchial hazy opacity could be due to bronchitis. Signed by: Dr. Aneudy Talamantes M.D. on 04/11/2018 5:31 PM Dictated By: ANEUDY TALAMANTES MD, MD 1731 Transcribed By: LIA on 04/11/18 1731 COPY TO: MARISELA PIZANO MD
--- OUTSIDE RECORDS SUMMARY | 2018-07-18 16:35 | XMS REPORT | Clinical Summary ---
Author Author [facility] Address Unknown Phone Unavailable Care Team Providers Care Quality Tech Name Role Phone PCP Unavailable Allergies Not on File Medications Not on file Active Problems Not on file Social History Date Tobacco Use Types Packs/Day Years Used Never Assessed Sex Assigned at Date Recorded Not on file Industry Job Start Date Occupation Not on file Not on file Not on file Travel End Travel History Travel Start No recent travel history available. Last Filed Vital Signs Not on file Plan of Treatment Not on file Results Not on fileafter 07/17/2017
--- OUTSIDE RECORDS SUMMARY | 2018-07-18 16:42 | XMS REPORT | Clinical Summary ---
Author Author [place] [facility] Address Unknown Phone Unavailable Care Team Providers Care Clinical Field Specialist Name Role Phone PCP Unavailable Allergies Not [...]
[2018-07-18] MEDS ORDERED: SODIUM CHLORIDE 0.9% 500ML 500 ML IV STA (17:21)
[2018-07-18 17:29] LABS: BASOPHILS % 0.2 % (0.0-1.0); EOSINOPHILS % 0.1 % (0.0-6.0); HEMATOCRIT 40.7 % (34.2-44.1); HEMOGLOBIN 13.5 g/dL (12.0-16.0); LYMPHOCYTES # (AUTO) 1.8 (1.0-3.2); MEAN CORPUSCULAR HGB CONC 33.2 g/dL (31-35); MEAN CORPUSCULAR VOLUME 96.4 fL (81-99); MONOCYTES # (AUTO) 1.8 (0.2-0.8); MONOCYTES % 10.7 % (4.4-11.3); NEUTROPHILS # (AUTO) 12.7 (2.1-6.9); NEUTROPHILS % 77.5 % (38.7-80.0); PLATELET COUNT 387 x10e3/uL (140-360); RED BLOOD COUNT 4.22 x10e6/uL (3.6-5.1); RED CELL DISTRIBUTION WIDTH 15.5 % (11.7-14.4)
[2018-07-18 17:40] LABS: ALBUMIN 3.8 g/dL (3.5-5.0); ALBUMIN/GLOBULIN RATIO 0.8 (0.8-2.0); ANION GAP 19.9 mmol/L (8-16); CALCIUM 10.2 mg/dL (8.4-10.2); CREATININE, SERUM 1.77 mg/dL (0.57-1.11); POTASSIUM 3.9 mmol/L (3.5-5.1)
[2018-07-18] MEDS ORDERED: ZOLPIDEM TARTRATE 5 MG TAB PO PRN (18:00)
[2018-07-18] MEDS ORDERED: ONDANSETRON HCL INJ 2MG/ML 2ML 2 MG/ML VIAL IV PRN (18:00)
[2018-07-18] MEDS ORDERED: ACETAMINOPHEN 325 MG TAB PO PRN (18:00)
[2018-07-18] MEDS ORDERED: MORPHINE SULFATE INJ 4 MG/ML INJ 1ML IV PRN (18:00)
[2018-07-18] MEDS ORDERED: MORPHINE SULFATE 2 MG/ML SYR 1ML IV PRN (18:00)
[2018-07-18] MEDS ORDERED: DIPHENHYDRAMINE HCL INJ 50 MG/ML VIAL IV PRN (18:00)
--- NOTE | 2018-07-18 18:26 | Diagnostic Imaging Report ---
ADDENDUM #1 Compared with report of CT brain from 08/02/2012, images are not available for comparison at the time of interpretation. I have reviewed the images and agree with findings in the preliminary report. Signed by: Dr. Dorothea Burris M.D. on 07/18/2018 8:50 PM ORIGINAL REPORT Exam: Noncontrast Head CT History: 72-year-old female with altered mental status, low blood pressure Comparison studies: None Technique: Axial images were obtained from the skull base to the vertex. Coronal and sagittal reconstructions obtained from the axial data. Dose modulation, iterative reconstruction, and/or weight based adjustment of the mA/kV was utilized to reduce the radiation dose to as low as reasonably achievable. Findings: Scalp/skull: No abnormalities. No fractures, blastic or lytic lesions. Extra-axial spaces: No masses. No fluid collections. Brain sulci: Mildly prominent with mild crowding near the vertices. Ventricles: Disproportionately prominent. No hydrocephalus. Parenchyma: Extensive white matter hypodensities which are progressively confluent in the periventricular regions are likely microvascular ischemic changes. 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 Subacute to chronic area of encephalomalacia in the left right lower lobe. No masses, hemorrhage, acute or chronic cortical vascular insults. Sellar/suprasellar region: No abnormalities Craniocervical junction: Patent foramen magnum. No Chiari one malformation. Other findings: Intracranial vascular calcifications in the carotid siphons. Bilateral cataract surgery. IMPRESSION: No acute infarct or hemorrhage. 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 Chronic findings: Moderate chronic white matter microvascular ischemic changes. 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 Report dictated by neuroradiology fellow. Final read to follow. Signed by: Hugh Valiente MD on 07/18/2018 6:23 PM
[2018-07-18] MEDS ORDERED: CEFEPIME HCL 2 GM VIAL IV ONE (18:30)
[2018-07-18] MEDS ORDERED: VANCOMYCIN 1GM/NS 250 ML 250 ML IV ONE (18:30)
[2018-07-18] MEDS ORDERED: CEFEPIME 2 GM/NS 0.9% 100 ML 100 ML IV ONE (18:30)
--- NOTE | 2018-07-18 18:33 | Diagnostic Imaging Report ---
EXAMINATION: CHEST SINGLE (PORTABLE) INDICATION: ^Chest pain, look for CHF, enlarge Mediastinum ^[id number] ^[id number] COMPARISON: 04/13/2018 chest radiograph FINDINGS: AP view TUBES and LINES: None. LUNGS/PLEURA: Chronic appearing linear atelectasis and fibrosis in the bilateral lungs. No evidence of CHF exacerbation. Blunting of the left costophrenic angle may represent trace effusion. HEART AND MEDIASTINUM: Mildly prominent cardiac silhouette which may be positional calcific aortic arch. BONES AND SOFT TISSUES: No acute osseous lesion. Soft tissues are unremarkable. UPPER ABDOMEN: No free air under the diaphragm. IMPRESSION: No acute pulmonary process. No evidence of acute CHF exacerbation. Signed by: Hugh Valiente MD on 07/18/2018 6:30 PM
[2018-07-18] MEDS: ENOXAPARIN SOD INJ 60 MG/0.6 ML SYR SC SCH (18:34)
--- OUTSIDE RECORDS SUMMARY | 2018-07-18 18:49 | XMS REPORT | Clinical Summary ---
Author Author Peterson Restorationist [facility] Restorationist Address Unknown Phone Unavailable Care Team Providers Care Acoustical Material Worker Name Role Phone PCP Unavailable Allergies Not [...]
--- NOTE | 2018-07-18 20:11 | NUR ---
Report received from [employer] SANDERRAFAEL Merida. Patient admitted in unit @2017 by yuri. Patient received alert/orient x3. Denied pain and no SOB. No respiratory distress noted. Sp02 maintained 93% with 3liters oxygen via nasal canula. Head to toe assessment completed. Patient had wound on his right ankle and right thumb due to fall at home, redness noted on medial buttocks. Bed in lower position,locked. Patient instructed to call for help as needed, verbalized and understand. Will continue to monitor.
[2018-07-18 21:00] VITALS: BP 118/74
[2018-07-18] MEDS ORDERED: SODIUM CHLORIDE 0.9% 250ML 250 ML ONE (21:14)
--- NOTE | 2018-07-18 21:19 | NUR ---
I assess the pt. BS course, wheeze, O2 92% HR 93... I notified nurse to place order for Tx. Pt. currently takes home med albuterol and atrovent
[2018-07-18] MEDS ORDERED: ALBUTEROL/IPRATROPIUM 3 ML NEB ONE (21:32)
[2018-07-18 22:42] VITALS: BP 118/74
[2018-07-18 23:00] VITALS: BP 118/74
[2018-07-18 23:24] VITALS: BP 118/74
[2018-07-18 23:59] VITALS: BP 114/78
[2018-07-19] VITALS (7 sets, daily range): BP systolic 106–143; BP diastolic 59–70
--- NOTE | 2018-07-19 06:54 | NUR ---
Report given to RAFAEL Velez.
[2018-07-19 08:04] LABS: CREATINE KINASE MB 1.2 ng/mL (0-5.0)
[2018-07-19] MEDS ORDERED: FAMOTIDINE 20 MG/2 ML VIAL IV SCH (09:00)
[2018-07-19] MEDS ORDERED: ALBUTEROL/IPRATROPIUM 3 ML NEB NEB PRN (09:15)
[2018-07-19] MEDS: PANTOPRAZOLE SOD 40 MG TABEC PO SCH (09:51)
[2018-07-19] MEDS: ENOXAPARIN SOD INJ 60 MG/0.6 ML SYR SC SCH (09:51)
[2018-07-19] MEDS: ASPIRIN 325 MG TAB PO SCH (09:51)
[2018-07-19] MEDS: CEFTRIAXONE SOD 1 GM/NS 50 ML 50 ML IV SCH (09:52)
--- NOTE | 2018-07-19 10:37 | Diagnostic Imaging Report ---
EXAMINATION: CT scan of the chest without contrast. TECHNIQUE: Spiral CT images of the chest were performed from the lung apices to the level of the adrenal glands. No intravenous contrast was administered per referring physician request. Coronal and sagittal reformatted images were obtained. COMPARISON: Chest radiograph 07/18/2018, CT chest with contrast 04/13/2018 CLINICAL HISTORY:Shortness of breath DISCUSSION: ABSENCE OF INTRAVENOUS CONTRAST DECREASES SENSITIVITY FOR DETECTION OF FOCAL LESIONS AND VASCULAR PATHOLOGY. LINES/TUBES: None. LUNGS AND AIRWAYS: Advanced upper lobe predominant paraseptal and centrilobular emphysematous changes are again noted, along with left greater than right apical pleural-parenchymal scar. Traction bronchiectasis in the lingula and lower lobes, left worse than right, is unchanged, along with left lower lobe peribronchial thickening. New filling defects and medial and posterior basal segmental bronchi of the left lower lobe with consolidation extending to the pleural surface (series 3 image 81). Juxtapleural scar laterally within the left lower lobe is unchanged. No right lung consolidations. PLEURA: Calcified pleural plaques along the posterior left pleural surface are unchanged. No pleural effusion or pneumothorax. HEART AND MEDIASTINUM: Visualized portions of the thyroid gland appear normal. Atherosclerotic calcification of the thoracic aorta, great vessel origins, and [place] coronary arteries without ectasia or aneurysmal dilatation. The pulmonary outflow tract is increased in caliber, measuring 3.2 cm. No pericardial effusion. No axillary, hilar, or mediastinal lymphadenopathy. Subcarinal lymph node measures 1 cm short axis, unchanged. LYMPH NODES: There is no mediastinal, hilar or axillary lymphadenopathy. ABDOMEN: Moderate sliding hiatal hernia unchanged. Visualized portions of the liver, spleen, adrenals, and left kidney are unremarkable. BONES AND SOFT TISSUES: Multilevel degenerative disc changes of the lower cervical, thoracic, and upper lumbar spine. Diffuse osteopenia with multiple lower thoracic and upper lumbar compression deformities, unchanged. No focal soft tissue abnormalities. IMPRESSION: Left lower lobe aspiration pneumonitis involving the medial and posterior basal segments. Advanced upper lobe predominant emphysematous changes, left apical pleural-parenchymal scar, lingular and bilateral lower lobe bronchiectasis, and left posterior calcified pleural plaques, unchanged compared to 04/13/2018. Enlargement of the pulmonary outflow tract in keeping with underlying pulmonary hypertension. Atherosclerotic vascular disease. Multiple thoracic and lumbar vertebral compression deformities with background diffuse osteopenia, not significantly changed relative to 04/13/2018. Signed by: Dr. Theo Jackson M.D. on 07/19/2018 10:34 AM
--- NOTE | 2018-07-19 11:14 | NUR ---
WOUND CARE CONSULTATION - INITIAL EVALUATION Patient admitted from home to ER for AMS, Confusion. DX: Hypotension, Myocardial Infarction, Syncope HX: COPD WBC16.4 HGB13.5 HCT40.7 NEUT%77.[address] of Head- Chronic Infarcts along Right Caudate, thalamus, & left parietal lobe. WC Consulted for multiple skin tears and redness to middle buttocks. PATIENT VISIT: Mega Score 17 Regular Visco Mattress - Turns Self Patient Calm Cooperative, able to verbalize needs and follows direction well. Diapered Right Hand Dressing and RLE Cox Dressing, bloody. -Right Hand skin tear and Right Cox skin tears from recent fall at home. Patient was trying to get out of bed onto wheel chair and fell between bed and chair. Frail Skin with multiple bruising to BLE and BUE. - Mid Gluteal Fold - Reddened, blanchable. No Pressure Ulcers Identified. Patient diapered and unable to tell when she has gone. She is unable to tell if she has had a bowel movement vs voiding. IMPRESSION: 1. Mid Gluteal Fold - Incontinence Related Dermatitis 2. Right Hand- 1st Webspace- Skin Tear. 3. Right Anterior Lower Leg - ( cox) - Skin Tear. RECOMMENDATION: 1. Mid Gluteal Fold - Incontinence Related Dermatitis. - Wash area with mild soap and water q12h - Apply Jazmyne Cream q12H and PRN Soiling. 2. Right Hand - Skin Tear - Xeroform Single Layer and Wrap with Light Kerlix Daily 3. RLE at Cox - Skin Tear - Xeroform Single Layer and Wrap with Light Kerlix Daily. 4. Encourage Out of Bed Activity 5. Encourage Turning and Repositioning every 2 hours. Thank you for consulting with Wound Care. Addendum: 07/19/18 at 1129 by Kevyn Watson RN Amended: Links added.
[2018-07-19] MEDS: LEVALBUTEROL HCL SOLN NEBU 0.63 MG/3 ML NEB INH SCH ×3 (13:00→19:10)
[2018-07-19] MEDS: IPRATROPIUM BROMIDE 0.02% 2.5 ML NEB INH SCH ×3 (13:10→19:10)
[2018-07-19] MEDS: ZINC OXIDE / BALSAM PERU 30 GM TUBE TOP SCH ×2 (13:47→23:59)
--- NOTE | 2018-07-19 14:26 | NUR ---
CM TO [id number] TO DISCUSS PLAN OF CARE WITH PT AND . CM ROLE AND CARE TRANSITIONS DISCUSSED. ANTICIPATED DISCHARGE PLAN DISCUSSED ALONG WITH DURATION OF CARE. CM DISCUSSED PATIENT'S RIGHT TO MAKE DECISIONS IN CARE. CM WORK HOURS GIVEN PT LIVES: WITH HER IN [facility] ADMIT FROM ER HOSPITAL /ER VISITS SINCE LAST ADMIT: 2 POA/EMERGENCY CONTACT: ; MR JOSHI CURRENT/PREVIOUS HOME HEALTH: [facility] STAFF RELIEF PHONE: WISHES TO RETURN TO THEIR SERVICES UPON DISCHARGE MEDICATIONS: (REFERRING TO INDEX HOSPITALIZATION OF "THE FIRST TIME YOU WERE IN THE HOSPITAL") A. WERE CHANGES MADE IN YOUR MEDICATIONS WHEN YOU WERE IN THE HOSPITAL ON (DATE OF INDEX HOSPITALIZATION)? YES B. DO YOU UNDERSTAND THE CHANGES? YES C. WERE YOU ABLE TO OBTAIN YOUR NEW MEDICATIONS RIGHT AWAY? YES D. WERE YOU ABLE TO TAKE YOUR MEDICATIONS LIKE THE DR WANTED YOU TO? YES E. DID THE HOSPITAL GIVE YOU AN ACCURATE, EASY TO UNDERSTAND LIST OF MEDS WHEN YOU LEFT? YES I GOT A LIST WHEN I LEFT [facility] 1 AND 1/2 MONTHS AGO OTHER SERVICES: NONE EMPLOYMENT STATUS: RETIRED AREAS OF CONCERN: NONE REFERRAL NEEDS: NEEDS TO BE REFERRED TO HOME HEALTH UPON DISCHARGE
--- NOTE | 2018-07-19 14:33 | NUR ---
Nutrition Screen Note RD Recommendation for Physician: - Continue current diet - Ensure Compact once daily per pt request Plan of Care: RD following, monitoring for tolerance and adequacy Nutrition reason for involvement: Nutrition Risk Trigger- RUST Primary Diagnose(s): hypotension, AK, syncope PMH: CHF, ETOH abuse, COPD, CAD, HTN, HLD Ht: 59 in Wt: 126.03 lb BMI: 25.5 kg/m2 IBW: [address] Assessment: (07/19) 72 YOF admitted for hypotension, AK, and syncopal episodes. Pt discussed during am rounds. Pt seen today per MST screen. Pt reports good appetite and po intake BACCARAT MANAGER. Pt reports intermittent N/V x 1 week BACCARAT MANAGER. Pt denies any wt loss, reports UBW of 123#. Pt requesting Ensure Compact once per day stating that she drinks it up at home. Chart reviewed. Labs and meds reviewed. Pt with no questions or concerns at time of visit. Will monitor and continue to follow. Current Diet: Cardiac Malnutrition Evaluation (07/19/18) The patient does not meet criteria for a specified degree of malnutrition at this time. Will re-evaluate at follow-up as appropriate. Diet Education Needs Assessment: Diet education not indicated. Nutrition Care Level: Low Signed: January Baugh RD, LD, [facility]
--- NOTE | 2018-07-19 15:23 | History and Physical ---
PCP: Dr. Reji Livingston. CHIEF COMPLAINT: Low blood pressure, not feeling well, near syncopal episode. HISTORY OF PRESENT ILLNESS: The patient is a pleasant 72-year-old female brought in by EMS due to low blood pressure. The patient's systolic blood pressure was in the 60-70. The patient was at the eye clinic at that time. The patient subsequently brought into the hospital. Here, the patient's systolic blood pressure was 98. She had slight cardiac enzyme positive, troponin I of greater than 1. The patient is otherwise stable. She is comfortable at this time. At baseline, the patient is taking no blood pressure medication. She does have SVT previously. The patient is stable at this time, awaiting for further evaluation by Dr. Steffen Kay. Her previous patient ombudsperson is Dr. Keith Angulo. PAST MEDICAL HISTORY: SVT; diastolic dysfunction congestive heart failure; previously alcohol abuse, she quit three years ago. Chronic obstructive pulmonary disease, ex-smoker. Venous stasis of the lower extremity. SOCIAL HISTORY: The patient quit smoking and drinking alcohol few years ago. She does not take any recreational drugs. ALLERGIES: NIACIN. HOME MEDICATIONS: List reviewed. REVIEW OF SYSTEMS: As mentioned. PHYSICAL EXAMINATION: VITAL SIGNS: Temperature is 98, blood pressure 110/70, pulse rate is 90, respirations 22. GENERAL: The patient is not in acute distress. She has oxygen nasal cannula. HEENT: Normocephalic, atraumatic. Anicteric. NECK: Supple grossly. PULMONARY: Diminished breath sounds bilaterally with some rhonchi. CARDIOVASCULAR: Regular rate and rhythm. ABDOMEN: Soft. EXTREMITIES: Venous stasis skin changes. No edema. NEUROLOGIC: No focal deficit. LABORATORY DATA: WBC 16.4, hemoglobin 13.5, hematocrit 40.7, platelets 387. Sodium is 136, potassium 3.9, chloride 84, bicarb 36, BUN 31, creatinine 1.7, glucose is 101. Troponin I is 0.56, 0.78, 1.32. Chest x-ray is otherwise no acute process. CT scan of the brain, no bleed. Moderate chronic white matter microvascular ischemic changes. Chronic infarct along the right caudate and thalamus and left parietal lobe. IMPRESSION: 1. Uen-NJ-fxgzizhcw myocardial infarction. 2. Hypotensive episode. 3. Baseline chronic obstructive pulmonary disease. 4. Multiple chronic baseline problems. PLAN: Consultation with Dr. Steffen Kay. Echocardiogram. Yyx-VE-elweompyq myocardial infarction treatment. Lovenox. Aspirin. We will monitor the patient closely and we will follow up with Dr. Steffen Kay recommendation. MD KANWAL Li/GUANAKO /[id number]
--- NOTE | 2018-07-19 16:13 | NUR ---
dr springer with cardiology on unit. aware pt had run of afib with hr upto 140s. new orders recv. pt asymptomatic.
[2018-07-19] MEDS: METOPROLOL TARTRATE 25 MG TAB PO SCH (17:21)
[2018-07-19 17:26] LABS: CREATINE KINASE MB 1.3 ng/mL (0-5.0)
--- NOTE | 2018-07-19 17:50 | NUR ---
consent obtained from patient, daughter at bedside and signed as witness dt intermittent episodes of confusion. patient spouse also notified and aware and verbal consent to stress test.
[2018-07-19] MEDS: SIMVASTATIN 20 MG TAB PO SCH (20:50)
[2018-07-19] MEDS: ENOXAPARIN SOD INJ 40 MG/0.4 ML SYR SC SCH (20:50)
[2018-07-19] MEDS ORDERED: ENOXAPARIN SOD INJ 60 MG/0.6 ML SYR SC SCH (21:00)
[2018-07-20] VITALS (8 sets, daily range): BP systolic 85–155; BP diastolic 56–80
[2018-07-20 05:24] LABS: BASOPHILS # (AUTO) 0.1 (0.0-0.1); BASOPHILS % 0.7 % (0.0-1.0); EOSINOPHILS # (AUTO) 0.5 (0.0-0.4); EOSINOPHILS % 5.1 % (0.0-6.0); HEMATOCRIT 32.7 % (34.2-44.1); HEMOGLOBIN 10.6 g/dL (12.0-16.0); LYMPHOCYTES # (AUTO) 1.3 (1.0-3.2); LYMPHOCYTES % 12.5 % (18.0-39.1); MEAN CORPUSCULAR HEMOGLOBIN 31.2 pg (28-32); MEAN CORPUSCULAR HGB CONC 32.4 g/dL (31-35); MEAN CORPUSCULAR VOLUME 96.2 fL (81-99); MONOCYTES # (AUTO) 1.1 (0.2-0.8); MONOCYTES % 10.4 % (4.4-11.3); NEUTROPHILS # (AUTO) 7.5 (2.1-6.9); PLATELET COUNT 279 x10e3/uL (140-360); RED CELL DISTRIBUTION WIDTH 15.4 % (11.7-14.4)
[2018-07-20 05:44] LABS: ANION GAP 13.9 mmol/L (8-16); CALCIUM 8.9 mg/dL (8.4-10.2); CREATININE, SERUM 0.92 mg/dL (0.57-1.11)
[2018-07-20 05:48] LABS: POTASSIUM 2.9 mmol/L (3.5-5.1)
[2018-07-20] MEDS ORDERED: POTASSIUM CHLORIDE 20 MEQ TAB CR PO NR (06:30)
--- NOTE | 2018-07-20 06:58 | NUR ---
Report given to oncoming nurse,walking round done.
--- NOTE | 2018-07-20 07:20 | NUR ---
Pt received resting in bed. Alert and oriented x2 pleasantly confused. Oriented to staff and surrounding. Advised to press call conde if help needed. Will monitor
[2018-07-20] MEDS: IPRATROPIUM BROMIDE 0.02% 2.5 ML NEB INH SCH ×4 (07:26→19:15)
[2018-07-20] MEDS: LEVALBUTEROL HCL SOLN NEBU 0.63 MG/3 ML NEB INH SCH ×4 (07:26→19:15)
[2018-07-20] MEDS: METOPROLOL TARTRATE 25 MG TAB PO SCH ×2 (07:26→16:39)
[2018-07-20] MEDS ORDERED: ACETAMINOPHEN 325 MG TAB PO PRN (08:15)
[2018-07-20] MEDS: ENOXAPARIN SOD INJ 40 MG/0.4 ML SYR SC SCH ×2 (08:24→20:45)
[2018-07-20] MEDS: CEFTRIAXONE SOD 1 GM/NS 50 ML 50 ML IV SCH (08:24)
--- NOTE | 2018-07-20 08:24 | NUR ---
Meds given as ordered. Call conde within reach. Wound care provided. Bed bath given. Pt is NPO for stress test. Will monitor
[2018-07-20] MEDS ORDERED: SODIUM CHLORIDE 0.9% 250ML 250 ML ONE (08:28)
[2018-07-20] MEDS: DALIRESP PO SCH (09:00)
[2018-07-20] MEDS: ZINC OXIDE / BALSAM PERU 30 GM TUBE TOP SCH (09:44)
[2018-07-20] MEDS: PIPER-TAZ 3.375 GM 50 ML IV SCH ×2 (11:11→17:41)
[2018-07-20] MEDS ORDERED: REGADENOSON 0.4 MG/5 ML SYR IV ONE (11:15)
--- NOTE | 2018-07-20 11:15 | NUR ---
Pt left unit for stress test
[2018-07-20] MEDS ORDERED: POTASSIUM CHLORIDE 10MEQ EA PO NR (12:30)
--- NOTE | 2018-07-20 12:38 | NUR ---
EDUCATED ABOUT IMM, SIGNED, FILED IN CHART, WITH COPY LEFT WITH FAMILY AT BEDSIDE.
--- NOTE | 2018-07-20 12:55 | NUR ---
Pt returned from stress test
[2018-07-20] MEDS: ASPIRIN 325 MG TAB PO SCH (13:33)
[2018-07-20] MEDS: PANTOPRAZOLE SOD 40 MG TABEC PO SCH (13:33)
[2018-07-20] MEDS: MAGNESIUM OXIDE 400 MG TAB PO SCH (13:33)
--- NOTE | 2018-07-20 16:00 | NUR ---
BP 80/56 hr 80's. Pt is asymptomatic. Dr. Bhargavi menendez. Will follow up
--- NOTE | 2018-07-20 16:38 | NUR ---
BP 85/[address] Burk notified. No special order given. No BP meds given today. Bedside speech swallow Eval ordered. Will monitor
--- NOTE | 2018-07-20 18:36 | NUR ---
As per Dr. Ailin Martin, pt's stress test was negative. made aware of pt's BP. No special order given. Will monitor
--- NOTE | 2018-07-20 19:20 | Myoview Stress Test ---
DATE OF STUDY: 07/19/2018 16:58:00 Stress Test - Treadmill ONLY PROCEDURE TITLE: Rest/stress single isotope SPECT imaging with pharmacologic stress and gated SPECT imaging. PROCEDURE IN DETAIL: Pharmacologic stress testing was performed with regadenoson per protocol. The heart rate was 94 beats per minute at rest and increased to 108 beats per minute during the regadenoson infusion. The rest blood pressure was 107/59 mmHg and decreased to 83/54 mmHg, which is a normal response. The resting electrocardiogram demonstrated normal sinus rhythm with inferolateral ST abnormalities. There were no ST-segment changes suggestive of myocardial ischemia. Next, myocardial perfusion imaging was performed at rest following the injection of 10.5 mCi of tetrofosmin. At peak pharmacologic effect, the patient was injected with 29 mCi of tetrofosmin. Gated post-stress tomographic imaging was performed. FINDINGS: The overall quality of study is fair. Left ventricular cavity is noted to be normal size on the rest and stress studies. SPECT images demonstrate homogeneous tracer distribution throughout the myocardium. Gated SPECT imaging reveals normal myocardial thickening and wall motion. The left ventricular ejection fraction was greater than 50% by visual estimate. IMPRESSION: Myocardial perfusion imaging is normal. Overall left ventricular systolic function was normal without regional wall motion abnormalities. Inconclusive ECG Lexiscan stress test due to resting ECG abnormalities. Lottie Del Valle MD ABS/MODL /[id number]
[2018-07-20] MEDS: SIMVASTATIN 20 MG TAB PO SCH (20:45)
--- NOTE | 2018-07-20 20:56 | Progress Note ---
DATE: 07/20/2018 Cardiology Progress Note SUBJECTIVE: Had nuclear stress test today. No chest pain. OBJECTIVE: VITAL SIGNS: Temperature 98.9, pulse 98, respiratory rate 21, blood pressure 85/56, satting 100% on 3 L nasal cannula. GENERAL: Elderly female in no acute distress. CARDIOVASCULAR: Regular rate and rhythm. No murmurs, rubs, or gallops. LUNGS: Rhonchi bilaterally. ABDOMEN: Soft, nontender, nondistended. NEURO AND PSYCH: Alert and oriented x3. INPATIENT MEDICATIONS: Reviewed. LABORATORY DATA: Reviewed. IMAGING DATA: Reviewed. TELEMETRY DATA: Reviewed. Tele shows normal sinus rhythm, episodes of sinus tachycardia. NUCLEAR STRESS TEST: Reviewed. Shows normal myocardial perfusion. ASSESSMENT AND PLAN: 1. Elevated troponin. 2. Hypotensive episode. 3. Chronic obstructive pulmonary disease. 4. Possible pneumonia by chest CT. 5. Chest pain. PLAN: The patient has essentially normal LV function with normal myocardial perfusion, troponin elevation, likely a type 2 NJ. Continue medical therapy with aspirin, statin, and beta blockers. Up-titrate beta blockers as needed for episodes of tachycardia if blood pressure tolerates. Defer treatment of COPD and possible pneumonia to primary team. Thank you for this consult. We will continue to follow. MD MARGIE Malin/GUANAKO /[id number]
[2018-07-21 00:04] VITALS: BP 104/52
[2018-07-21] MEDS: ZINC OXIDE / BALSAM PERU 30 GM TUBE TOP SCH ×3 (00:07→20:10)
[2018-07-21] MEDS: PIPER-TAZ 3.375 GM 50 ML IV SCH ×4 (00:13→18:00)
[2018-07-21 04:15] VITALS: BP 103/50
[2018-07-21 05:39] LABS: BASOPHILS # (AUTO) 0.1 (0.0-0.1); BASOPHILS % 0.5 % (0.0-1.0); EOSINOPHILS % 9.9 % (0.0-6.0); HEMATOCRIT 32.3 % (34.2-44.1); HEMOGLOBIN 10.4 g/dL (12.0-16.0); LYMPHOCYTES # (AUTO) 1.5 (1.0-3.2); LYMPHOCYTES % 15.5 % (18.0-39.1); MEAN CORPUSCULAR HEMOGLOBIN 31.5 pg (28-32); MEAN CORPUSCULAR HGB CONC 32.2 g/dL (31-35); MEAN CORPUSCULAR VOLUME 97.9 fL (81-99); MONOCYTES % 10.9 % (4.4-11.3); NEUTROPHILS % 62.8 % (38.7-80.0); PLATELET COUNT 290 x10e3/uL (140-360); RED CELL DISTRIBUTION WIDTH 15.2 % (11.7-14.4)
[2018-07-21 06:21] LABS: ANION GAP 12.3 mmol/L (8-16); CREATININE, SERUM 1.06 mg/dL (0.57-1.11); POTASSIUM 4.3 mmol/L (3.5-5.1)
[2018-07-21 06:34] LABS: MAGNESIUM 1.6 MG/DL (1.3-2.1); PHOSPHORUS 3.5 MG/DL (2.3-4.7)
[2018-07-21] MEDS: LEVALBUTEROL HCL SOLN NEBU 0.63 MG/3 ML NEB INH SCH ×4 (07:00→21:00)
[2018-07-21] MEDS: IPRATROPIUM BROMIDE 0.02% 2.5 ML NEB INH SCH ×4 (07:00→21:00)
[2018-07-21 07:15] VITALS: BP 113/55
--- NOTE | 2018-07-21 07:20 | NUR ---
Pt received resting in bed. Vitals stable. Call conde within reach. Will monitor
[2018-07-21] MEDS: DALIRESP PO SCH (08:08)
[2018-07-21] MEDS: MAGNESIUM OXIDE 400 MG TAB PO SCH (08:08)
[2018-07-21] MEDS: ASPIRIN 325 MG TAB PO SCH (08:08)
[2018-07-21] MEDS: ENOXAPARIN SOD INJ 40 MG/0.4 ML SYR SC SCH ×2 (08:08→18:00)
[2018-07-21] MEDS: PANTOPRAZOLE SOD 40 MG TABEC PO SCH (08:08)
--- NOTE | 2018-07-21 08:08 | NUR ---
All meds given as ordered. Leila-care provided. Call conde within reach. Will monitor
[2018-07-21] MEDS ORDERED: ASPIRIN 325 MG TAB PO SCH (09:00)
[2018-07-21] MEDS: METOPROLOL TARTRATE 25 MG TAB PO SCH ×2 (09:20→17:00)
[2018-07-21 11:15] VITALS: BP 91/51
[2018-07-21] MEDS: FOLIC ACID 1 MG TAB PO SCH (11:40)
--- NOTE | 2018-07-21 14:19 | Progress Note ---
DATE: 07/21/2018 Cardiology Progress Note SUBJECTIVE: No major events overnight. Blood pressure is now improved. OBJECTIVE: VITAL SIGNS: Temperature afebrile, pulse 79, respiratory rate 18, blood pressure 113/55, and saturating 99% on nasal cannula. GENERAL: Elderly female, in no acute distress. CARDIOVASCULAR: Regular rate and rhythm. No murmurs, rubs, or gallops. LUNGS: Rhonchi in bilateral bases. ABDOMEN: Soft, nontender, and nondistended. NEURO AND PSYCH: Alert and oriented x2. INPATIENT MEDICATIONS: Reviewed. LABORATORY DATA: Reviewed. IMAGING DATA: Reviewed. TELEMETRY DATA: Reviewed. Nuclear stress test and echocardiogram performed this admission were normal. ASSESSMENT: 1. Elevated troponin. 2. Hypotensive episode. 3. Chronic obstructive pulmonary artery disease. 4. Suspected aspiration pneumonia. 5. Chest pains. PLAN: Continue current cardiovascular medications. Nuclear stress and echocardiogram were essentially normal. Elevated troponin likely secondary to type 2 RI in the setting of aspiration pneumonia. Thank you for this consult. We will continue to follow. MD MARGIE Malin/GUANAKO /[id number]
--- NOTE | 2018-07-21 16:04 | Diagnostic Imaging Report ---
EXAM: Modified barium swallow with Speech Pathologist INDICATION: ^asp pna ^[id number] ^1027 ^Y COMPARISON: None available. RADIATION DOSE: Fluoroscopy Time: 0.9 min Dose (Kerma) Area Product: 158.7 cGycm2 Air Kerma (AK) value has been reviewed. It is below the limits set by the Radiation Protocol Committee (RPC) committee. FINDINGS: See impression IMPRESSION: No evidence of penetration or aspiration. Please see speech pathology report for detailed description and recommendations. Signed by: Dr. Theo Jackson M.D. on 07/21/2018 4:01 PM
[2018-07-21 16:15] VITALS: BP 92/56
--- NOTE | 2018-07-21 18:59 | NUR ---
Walking rounds done. Handoff given to oncoming nurse
[2018-07-21 19:58] VITALS: BP 101/53
[2018-07-21] MEDS: SIMVASTATIN 20 MG TAB PO SCH (21:35)
[2018-07-22] VITALS (9 sets, daily range): BP systolic 94–117; BP diastolic 55–62
[2018-07-22] MEDS: PIPER-TAZ 3.375 GM 50 ML IV SCH ×4 (00:23→18:26)
[2018-07-22] MEDS: IPRATROPIUM BROMIDE 0.02% 2.5 ML NEB INH SCH ×4 (07:18→19:35)
[2018-07-22] MEDS: LEVALBUTEROL HCL SOLN NEBU 0.63 MG/3 ML NEB INH SCH ×4 (07:18→19:35)
[2018-07-22] MEDS: DALIRESP PO SCH (08:31)
[2018-07-22] MEDS: PANTOPRAZOLE SOD 40 MG TABEC PO SCH (08:31)
[2018-07-22] MEDS ORDERED: CHOLECALCIFEROL 1,000 UNIT TAB PO SCH (09:00)
[2018-07-22] MEDS: METOPROLOL TARTRATE 25 MG TAB PO SCH ×2 (09:32→16:49)
[2018-07-22] MEDS: MAGNESIUM OXIDE 400 MG TAB PO SCH (09:32)
[2018-07-22] MEDS: FOLIC ACID 1 MG TAB PO SCH (09:32)
[2018-07-22] MEDS: ASPIRIN 81 MG CHEW TAB PO SCH (09:32)
--- NOTE | 2018-07-22 09:58 | NUR ---
EDUCATED ABOUT IMM, SIGNED, FILED IN CHART, WITH COPY LEFT WITH FAMILY AT BEDSIDE.
--- NOTE | 2018-07-22 10:13 | Consultation ---
DATE OF CONSULTATION: 07/19/2018 Cardiology Consult Note REASON FOR CONSULT: Elevated troponin. HISTORY OF PRESENT ILLNESS: This is a 72-year-old female with history of chronic obstructive pulmonary disease, chronic alcohol abuse, history of atrial fibrillation, who presents to the hospital with low blood pressure and altered mental status. The patient was at her eye clinic appointment when she was noted to have blood pressure in the 60s and 70s, subsequently brought to the ER when blood pressure was improved to 98 systolic. The patient denies any chest pain or shortness of breath. Seems somewhat confused. Has history of atrial fibrillation with RVR or SVT. PAST MEDICAL HISTORY: 1. SVT. 2. Diastolic dysfunction. 3. Congestive heart failure. 4. Alcohol abuse. 5. History of heavy smoking. 6. Chronic obstructive pulmonary disease. SOCIAL HISTORY: The patient used to be heavy smoker and drinker, quit few years ago. Does not use any drugs. HOME MEDICATIONS: Reviewed. REVIEW OF SYSTEMS: As per HPI. PHYSICAL EXAMINATION: VITAL SIGNS: Temperature afebrile, blood pressure 110/70, pulse rate 90, respiratory rate 22, saturating 98% on nasal cannula. GENERAL: Thin, chronically ill-appearing female, no acute distress. CARDIOVASCULAR: Regular rate and rhythm. No murmurs, rubs, or gallops. LUNGS: Diminished breath sounds in bilateral bases. Some rhonchi heard at the left base. ABDOMEN: Soft, nontender, nondistended. NEURO and PSYCH: Alert and oriented x2. INPATIENT MEDICATIONS: Reviewed. LABORATORY DATA: Reviewed. Notable for presenting troponin I of 1.3, now down trending to 0.78 and 0.56 with normal CK and CK-MB. White blood cell count of 16.4, hemoglobin of 13.5, and creatinine is 1.8. IMAGING DATA: Reviewed. CT scan shows left lower lobe pneumonia and chronic obstructive pulmonary disease changes. Head CT shows no acute infarct or hemorrhage. Telemetry shows normal sinus rhythm. ASSESSMENT AND PLAN: 1. Non-ST elevation myocardial infarction. 2. Hypotensive episode, now improved. 3. Chronic obstructive pulmonary disease. 4. Possible left lower lobe pneumonia. 5. Multiple chronic baseline problems. PLAN: The patient is asymptomatic. EKG shows no acute ischemia. Troponin is down trending. Given her history of smoking, she is at risk for coronary artery disease. However, given her acute kidney injury and overall frailty, she is not a good candidate for early invasive strategy for non-ST elevation myocardial infarction. We will prefer ischemia guided strategy. We will plan for nuclear stress test likely tomorrow. Continue aspirin, statin, and Lovenox for now. Thank you for this consult. We will continue to follow. MD MARGIE Malin/GUANAKO /[id number]
[2018-07-22] MEDS ORDERED: DOXYCYCLINE HYCLATE TABLET 100 MG TAB PO SCH (10:45)
[2018-07-22] MEDS: ZINC OXIDE / BALSAM PERU 30 GM TUBE TOP SCH (10:49)
--- NOTE | 2018-07-22 13:52 | NUR ---
ORDERS FOR HOME HEALTH SENIOR CARE AND HOME P.T. PT CHOSE [facility]; PH: [phone] FAX [phone] CHOICE LETTER SIGNED AND ON CHART; COPY TO PT FAXED ORDERS; CONFIRMATION REC'D ANTICIPATE DC HOME SAT 07/23
[2018-07-22] MEDS: ENOXAPARIN SOD INJ 40 MG/0.4 ML SYR SC SCH (17:03)
--- NOTE | 2018-07-22 20:51 | Progress Note ---
DATE: 07/22/2018 Cardiology Progress Note SUBJECTIVE: No major events overnight. OBJECTIVE: VITAL SIGNS: Temperature afebrile, pulse 89, respiratory rate 18, blood pressure 108/57, saturating 3 L on nasal cannula. GENERAL: Elderly female, no acute distress. CARDIOVASCULAR: Regular rate and rhythm. No murmurs, rubs, or gallops. LUNGS: Rhonchi in bilateral bases. ABDOMEN: Soft, nontender, nondistended. NEUROLOGIC/PSYCHIATRIC: Alert and oriented to person, place, and time. Normal affect. INPATIENT MEDICATIONS: Reviewed. LABORATORY DATA: Reviewed. IMAGING DATA: Reviewed. TELEMETRY DATA: Reviewed. Nuclear stress test with normal perfusion. Echocardiogram with normal LV function. ASSESSMENT: 1. Elevated troponin. 2. Hypotensive episode. 3. Chronic obstructive pulmonary disease. 4. Suspected aspiration pneumonia. 5. Chest pains. PLAN: Doing well from Cardiovascular standpoint. Continue current cardiovascular medications. Okay to be discharged from cardiac standpoint with outpatient followup. MD MARGIE Malin/MODL /[id number]
[2018-07-22] MEDS: DOXYCYCLINE HYCLATE TABLET 100 MG TAB PO SCH (20:59)
[2018-07-22] MEDS: SIMVASTATIN 20 MG TAB PO SCH (20:59)
[2018-07-23 00:40] VITALS: BP 139/98
[2018-07-23] MEDS: PIPER-TAZ 3.375 GM 50 ML IV SCH ×2 (00:50→05:48)
[2018-07-23] MEDS: ZINC OXIDE / BALSAM PERU 30 GM TUBE TOP SCH (00:50)
[2018-07-23 04:57] VITALS: BP 137/70
[2018-07-23 05:18] LABS: BASOPHILS # (AUTO) 0.1 (0.0-0.1); BASOPHILS % 0.7 % (0.0-1.0); EOSINOPHILS % 12.1 % (0.0-6.0); HEMATOCRIT 31.9 % (34.2-44.1); HEMOGLOBIN 10.3 g/dL (12.0-16.0); LYMPHOCYTES # (AUTO) 1.8 (1.0-3.2); LYMPHOCYTES % 21.7 % (18.0-39.1); MEAN CORPUSCULAR HEMOGLOBIN 31.7 pg (28-32); MEAN CORPUSCULAR HGB CONC 32.3 g/dL (31-35); MEAN CORPUSCULAR VOLUME 98.2 fL (81-99); MONOCYTES # (AUTO) 0.9 (0.2-0.8); MONOCYTES % 10.2 % (4.4-11.3); NEUTROPHILS # (AUTO) 4.6 (2.1-6.9); NEUTROPHILS % 54.5 % (38.7-80.0); PLATELET COUNT 302 x10e3/uL (140-360); RED BLOOD COUNT 3.25 x10e6/uL (3.6-5.1); RED CELL DISTRIBUTION WIDTH 14.9 % (11.7-14.4)
[2018-07-23 05:55] LABS: ANION GAP 11.5 mmol/L (8-16); BLOOD UREA NITROGEN 16 mg/dL (7-26); BUN/CREATININE RATIO 19 (6-25); CALCIUM 9.2 mg/dL (8.4-10.2); CARBON DIOXIDE 33 mmol/L (22-29); CHLORIDE 98 mmol/L (98-107); CREATININE, SERUM 0.84 mg/dL (0.57-1.11); EST GLOMERULAR FILTRATION RATE > 60 ML/MIN (60-); GLUCOSE 79 mg/dL (74-118); POTASSIUM 4.5 mmol/L (3.5-5.1); SODIUM 138 mmol/L (136-145)
[2018-07-23] MEDS: IPRATROPIUM BROMIDE 0.02% 2.5 ML NEB INH SCH (07:19)
[2018-07-23] MEDS: LEVALBUTEROL HCL SOLN NEBU 0.63 MG/3 ML NEB INH SCH (07:19)
--- NOTE | 2018-07-23 07:20 | NUR ---
Report given to oncoming nurse.
[2018-07-23 07:30] VITALS: BP 137/70
[2018-07-23 07:36] VITALS: BP 128/72
[2018-07-23] MEDS: PANTOPRAZOLE SOD 40 MG TABEC PO SCH (07:38)
[2018-07-23] MEDS: DALIRESP PO SCH (07:38)
[2018-07-23] MEDS: FOLIC ACID 1 MG TAB PO SCH (08:11)
[2018-07-23] MEDS: MAGNESIUM OXIDE 400 MG TAB PO SCH (08:11)
[2018-07-23] MEDS: ASPIRIN 81 MG CHEW TAB PO SCH (08:11)
[2018-07-23] MEDS: DOXYCYCLINE HYCLATE TABLET 100 MG TAB PO SCH (08:11)
[2018-07-23] MEDS: METOPROLOL TARTRATE 25 MG TAB PO SCH (08:11)
[2018-07-23] MEDS ORDERED: DOXYCYCLINE HY100 MG PO (09:44)
[2018-07-23] MEDS ORDERED: METOPROLOL TART25 MG PO (09:48)
--- NOTE | 2018-07-24 06:42 | Discharge Summary ---
PRIMARY CARE PHYSICIAN: Reji Livingston MD ELECTRONICS TECHNOLOGY DEPARTMENT CHAIR: Steffen Kay MD FINAL DIAGNOSES: 1. Aspiration pneumonitis/atypical pneumonia. 2. Troponin I spillage with a negative stress test. 3. Near syncopal episode secondary to the above. 4. Chronic sinus tachycardia. 5. Chronic medical debility. SUMMARY: A 72-year-old female, who came in with basically some weakness. The patient has a near syncopal episode. No passing out. No loss of consciousness. Blood pressure was low, but found to have pneumonitis pneumonia. The patient was placed on antibiotics. She is doing well. She is stable at baseline. She does have provider care. The patient also has home health at home. All have been notified. The patient is otherwise stable. When she came in, her blood pressure was low, but her white cell count was also elevated at 16,400. She did have a fever. The patient was treated for aspiration pneumonia. She is doing much better now. The patient is stable. Afebrile over 24 hours. She is able to get up, ambulate. The patient is stable, discharged home. She will resume all home medications. DISCHARGE MEDICATIONS: 1. Metoprolol tartrate 25 mg twice a day. 2. Doxycycline 100 mg twice a day for 7 days. The patient is stable, discharged home. Follow up with Dr. Reji Livingston within a week and continue with supportive measure at home. MD KANWAL Li/MODL /[id number]
== END 2018-07-23 10:41 | disposition home health service (06) | DRG 280 ==
LOC: ER 16:39 → ERHOLD 18:45 → IMCU 20:17
PROVIDERS: ADMIT Internal Medicine; ATTEND Internal Medicine
DX: I21.A1 Myocardial infarction type 2 (principal); J69.0 Pneumonitis due to inhalation of food and vomit; N17.9 Acute kidney failure, unspecified; I50.32 Chronic diastolic (congestive) heart failure; R41.82 Altered mental status, unspecified; E86.0 Dehydration; R09.02 Hypoxemia; Z88.8 Allergy status to other drugs, medicaments and biological substances; I11.0 Hypertensive heart disease with heart failure; J44.9 Chronic obstructive pulmonary disease, unspecified; F10.10 Alcohol abuse, uncomplicated; Z87.891 Personal history of nicotine dependence; I95.9 Hypotension, unspecified; I48.91 Unspecified atrial fibrillation; E87.6 Hypokalemia; R55 Syncope and collapse; R00.0 Tachycardia, unspecified
CPT/HCPCS: 36415; 70450; 71045; 71250; 74230; 78452; 80048; 80053; 80061; 82550; 82553; 83605; 83735; 84100; 84484; 85025; 87040; 93005; 93017; 93306; 93880; 94640; 97139; 99284; A9502; J0696; J1650; J2543; J3370; J7040; J7050

== ENCOUNTER 2021-08-24 16:40 | Emergency (ER) | payer MEDICARE, OTHER ==
[~2021-08-24] VITALS: Ht 149.9 cm; Wt 59.0 kg
[~2021-08-24 16:40] MED LIST changes: +DOXYCYCLINE HY100 MG PO; +METOPROLOL TART25 MG PO
[2021-08-24] MEDS ORDERED: ACETAMINOPHEN 325 MG TAB PO STA (17:04)
[2021-08-24] MEDS ORDERED: SODIUM CHLORIDE 0.9% 1000ML 1,000 ML IV STA ×2 (17:05→19:41)
[2021-08-24] MEDS ORDERED: Vancomycin IV 1 GM in SODIUM CHLORIDE 0.9% 250ML 250 ML IV STA (17:05)
[2021-08-24] MEDS ORDERED: ACETAMINOPHEN 1000 MG/100 ML IV STA (17:08)
[2021-08-24] MEDS ORDERED: METHYLPREDNISOLONE SOD SUCC 125 MG/2ML VIAL IV ONE (17:15)
[2021-08-24 17:17] LABS: BASOPHILS % 0.3 % (0.0-1.0); EOSINOPHILS % 0.1 % (0.0-6.0); HEMATOCRIT 33.8 % (34.2-44.1); HEMOGLOBIN 10.4 g/dL (12.0-16.0); LYMPHOCYTES # (AUTO) 0.8 (1.0-3.2); LYMPHOCYTES % 5.1 % (18.0-39.1); MEAN CORPUSCULAR HEMOGLOBIN 31.3 pg (28-32); MEAN CORPUSCULAR HGB CONC 30.8 g/dL (31-35); MEAN CORPUSCULAR VOLUME 101.8 fL (81-99); MONOCYTES % 6.9 % (4.4-11.3); NEUTROPHILS % 86.5 % (38.7-80.0); PLATELET COUNT 353 x10e3/uL (140-360); RED BLOOD COUNT 3.32 x10e6/uL (3.6-5.1); RED CELL DISTRIBUTION WIDTH 13.7 % (11.7-14.4)
[2021-08-24 17:24] LABS: INR 1.08
[2021-08-24 17:25] LABS: PARTIAL THROMBOPLASTIN TIME 26.3 seconds (23.8-35.5)
[2021-08-24] MEDS ORDERED: PIPERACILLIN/TAZOBACTAM 3.375 GM VIAL ONE (17:26)
[2021-08-24] MEDS ORDERED: Vancomycin IV 1 GM VIAL ONE (17:26)
[2021-08-24] MEDS ORDERED: SODIUM CHLORIDE 0.9% 250ML 250 ML ONE (17:26)
[2021-08-24] MEDS ORDERED: SODIUM CHLORIDE 0.9% 100 ML ONE (17:27)
[2021-08-24 17:34] LABS: CLARITY,URINE HAZY (CLEAR); COLOR,URINE YELLOW (YELLOW); KETONES,URINE NEGATIVE (NEGATIVE); LEUKOCYTE ESTERASE ,URINE NEGATIVE (NEGATIVE); NITRITE,URINE NEGATIVE (NEGATIVE); PROTEIN,URINE DIPSTICK TRACE (NEGATIVE); URINE UROBILINOGEN 0.2 mg/dL (0.2 - 1)
[2021-08-24 17:35] LABS: ALBUMIN 3.2 g/dL (3.5-5.0); ALBUMIN/GLOBULIN RATIO 0.9 (0.8-2.0); ANION GAP 22.4 mmol/L (8-16); CALCIUM 11.7 mg/dL (8.4-10.2); CREATININE, SERUM 3.83 mg/dL (0.57-1.11); POTASSIUM 3.4 mmol/L (3.5-5.1)
[2021-08-24 17:41] LABS: CREATINE KINASE MB 30.6 ng/mL (0-5.0)
[2021-08-24 17:49] LABS: BACTERIA,URINE FEW /HPF; EPITHELIAL CELLS,URINE FEW /LPF; RBC,URINE 0-5 /HPF (0-5); WBC,URINE (MAN) 0-5 /HPF (0-5)
[2021-08-24] MEDS ORDERED: ASPIRIN 300 MG SUPP PR STA (17:58)
[2021-08-24] MEDS ORDERED: ALBUTEROL/IPRATROPIUM 3 ML NEB NEB ONE (18:00)
[2021-08-24] MEDS ORDERED: ASPIRIN 325 MG TAB PO ONE (18:00)
[2021-08-24 19:44] LABS: ABG PH 7.51 (7.35-7.45)
[2021-08-24 19:45] LABS: ABG HCO3 62 mmol/L (22-26); ABG PCO2 79 mmHg (35-45); ABG PO2 100 mmHg (80-105)
[2021-08-24 19:46] LABS: ABG TCO2 > 50
[2021-08-24 21:49] LABS: ANION GAP 18.2 mmol/L (8-16); CALCIUM 10.4 mg/dL (8.4-10.2); CREATININE, SERUM 3.68 mg/dL (0.57-1.11); POTASSIUM 3.2 mmol/L (3.5-5.1)
[2021-08-25] MEDS ORDERED: SODIUM CHLORIDE 0.9% 1000ML 1,000 ML ONE (01:12)
== END 2021-08-25 01:20 | disposition short-term general hospital (02) ==
LOC: ER 16:45
DX: I21.4 Non-ST elevation (NSTEMI) myocardial infarction (principal); J80 Acute respiratory distress syndrome; A41.9 Sepsis, unspecified organism; J44.9 Chronic obstructive pulmonary disease, unspecified; I10 Essential (primary) hypertension; E78.5 Hyperlipidemia, unspecified; Z88.8 Allergy status to other drugs, medicaments and biological substances; Z20.822 Contact with and (suspected) exposure to COVID-19; Z79.82 Long term (current) use of aspirin; Z79.899 Other long term (current) drug therapy; Z99.81 Dependence on supplemental oxygen; Z86.73 Personal history of transient ischemic attack (TIA), and cerebral infarction without residual deficits; Z87.891 Personal history of nicotine dependence
CPT/HCPCS: 36415; 36600; 51700; 71045; 80053; 81001; 82550; 82553; 82805; 83605; 83880; 84484; 85025; 85610; 85730; 87040; 87086; 93005; 94640 ×2; 94799; 99284; J0131; J2543; J2930; J3370; J7030 ×2; J7050 ×2; U0002; 80048